=== PATIENT | male | born 1975 | race Caucasian/White ===

== ENCOUNTER 2020-09-30 14:18 | Inpatient (IN) | payer OTHER ==
[2020-09-30] MEDS ORDERED: MENTHOL/PHENOL 1 EACH UD MM PRN (18:21)
[2020-09-30] MEDS ORDERED: chlordiazePOXIDE HCL 25 MG CAPSULE PO PRN (18:21)
[2020-09-30] MEDS ORDERED: NICOTINE POLACRILEX 2 MG GUM BUC PRN (18:21)
[2020-09-30] MEDS ORDERED: MAGNESIUM HYDROX 2400MG/30ML ORAL SUSPENSION 30 ML CUP PO PRN (18:21)
[2020-09-30] MEDS ORDERED: IBUPROFEN 400 MG TABLET (FP) PO PRN (18:21)
[2020-09-30] MEDS ORDERED: MAG HYDROX/AL HYDROX/SIMETH 30 ML UNIT-DOSE CUP PO PRN (18:21)
[2020-09-30] MEDS ORDERED: MAGNESIUM CITRATE 300 ML BOTTLE PO PRN (18:21)
[2020-09-30] MEDS ORDERED: BISMUTH SUBSALICYLATE 524 MG/30 ML UD PO PRN (18:21)
[2020-09-30] MEDS ORDERED: METHOCARBAMOL 500 MG TABLET PO PRN (18:21)
[2020-09-30] MEDS ORDERED: ACETAMINOPHEN 325 MG TABLET (FP) PO PRN ×2 (18:21)
[2020-09-30] MEDS ORDERED: ONDANSETRON *ODT* 4 MG TABLET SL PRN (18:21)
[2020-09-30 18:51] VITALS: BMI 30.8
[2020-09-30] MEDS: MELATONIN 5 MG TABLETS PO SCH (22:24)
[2020-09-30] MEDS: hydrOXYzine PAMOATE 25 MG CAPSULE (FP) PO SCH (22:24)
[2020-09-30] MEDS: chlordiazePOXIDE HCL 25 MG CAPSULE PO SCH (22:24)
[2020-09-30] MEDS: THIAMINE HCL 100 MG TABLET (FP) PO SCH (22:24)
[2020-10-01] MEDS: chlordiazePOXIDE HCL 25 MG CAPSULE PO SCH ×4 (06:31→22:29)
[2020-10-01] MEDS: hydrOXYzine PAMOATE 25 MG CAPSULE (FP) PO SCH ×5 (06:32→22:30)
[2020-10-01] MEDS ORDERED: ALBUTEROL SO4 HFA INHALER IH ONE (06:34)
[2020-10-01] MEDS ORDERED: ALBUTEROL SO4 HFA INHALER IH PRN (06:52)
[2020-10-01] MEDS: amLODIPine BESYLATE 10 MG TABLET (FP) PO SCH (10:07)
[2020-10-01] MEDS: ASPIRIN 81 MG CHEWABLE TABLETS PO SCH (10:07)
[2020-10-01] MEDS: PRENATAL VITAMINS W/ FOLIC ACID TABLET (FP) PO SCH (10:07)
[2020-10-01] MEDS: FAMOTIDINE 20 MG TABLET PO SCH (10:07)
[2020-10-01] MEDS: BUDESONIDE/FORMETEROL FUMARATE 160/4.5 mcg INHALER IH SCH ×2 (10:08→22:30)
[2020-10-01 10:17] LABS: HEMATOCRIT 37.6 % (35.4-49); HEMOGLOBIN 13.2 GM/dL (11.7-16.9); MCH 30.1 pg (25.7-33.7); MCHC 35.2 g/dl (32.0-35.9); MEAN CELL VOLUME 85.5 fl (80-96); MEAN PLT VOLUME 8.3 fl (7.5-11.1); PLATELET COUNT 264 K/MM3 (134-434); WHITE BLOOD COUNT 7.8 K/mm3 (4.0-10.0)
[2020-10-01 10:22] LABS: ALBUMIN 3.5 g/dl (3.4-5.0)
[2020-10-01 10:25] LABS: CREATININE 1.4 mg/dL (0.55-1.3)
[2020-10-01 10:26] LABS: BILIRUBIN,TOTAL 0.4 mg/dL (0.2-1); TOT PROT 6.7 g/dl (6.4-8.2)
[2020-10-01 10:51] LABS: CALCIUM 8.5 mg/dL (8.5-10.1)
[2020-10-01] MEDS: ALBUTEROL SO4 HFA INHALER IH PRN (18:24)
[2020-10-01] MEDS: ATORVASTATIN CA 10 MG TABLET (FP) PO SCH (22:29)
[2020-10-01] MEDS: THIAMINE HCL 100 MG TABLET (FP) PO SCH (22:30)
[2020-10-01] MEDS: MELATONIN 5 MG TABLETS PO SCH (22:30)
[2020-10-01] MEDS: MONTELUKAST NA 10 MG TABLET PO SCH (22:31)
[2020-10-02] MEDS: hydrOXYzine PAMOATE 25 MG CAPSULE (FP) PO SCH ×5 (06:04→22:02)
[2020-10-02] MEDS: chlordiazePOXIDE HCL 25 MG CAPSULE PO SCH ×4 (06:05→22:02)
[2020-10-02] MEDS: PRENATAL VITAMINS W/ FOLIC ACID TABLET (FP) PO SCH (10:06)
[2020-10-02] MEDS: FAMOTIDINE 20 MG TABLET PO SCH (10:06)
[2020-10-02] MEDS: amLODIPine BESYLATE 10 MG TABLET (FP) PO SCH (10:07)
[2020-10-02] MEDS: ASPIRIN 81 MG CHEWABLE TABLETS PO SCH (10:07)
[2020-10-02] MEDS: BUDESONIDE/FORMETEROL FUMARATE 160/4.5 mcg INHALER IH SCH ×2 (10:09→22:04)
[2020-10-02] MEDS: ALBUTEROL SO4 HFA INHALER IH PRN ×2 (10:10→22:04)
[2020-10-02] MEDS: METHADONE HCL 10 MG TABLET PO SCH (11:11)
[2020-10-02 13:09] LABS: BLOOD UREA NITROGEN 32.9 mg/dL (7-18)
[2020-10-02 13:12] LABS: CREATININE 1.4 mg/dL (0.55-1.3)
[2020-10-02] MEDS: MONTELUKAST NA 10 MG TABLET PO SCH (22:02)
[2020-10-02] MEDS: THIAMINE HCL 100 MG TABLET (FP) PO SCH (22:02)
[2020-10-02] MEDS: MELATONIN 5 MG TABLETS PO SCH (22:02)
[2020-10-02] MEDS: ATORVASTATIN CA 10 MG TABLET (FP) PO SCH (22:02)
[2020-10-03] MEDS ORDERED: chlordiazePOXIDE HCL 10 MG CAPSULE PO PRN
[2020-10-03] MEDS: chlordiazePOXIDE HCL 10 MG CAPSULE PO SCH ×4 (05:25→22:05)
[2020-10-03] MEDS: METHADONE HCL 10 MG TABLET PO SCH (05:25)
[2020-10-03] MEDS: hydrOXYzine PAMOATE 25 MG CAPSULE (FP) PO SCH ×2 (05:26→11:07)
[2020-10-03] MEDS ORDERED: hydrOXYzine PAMOATE 25 MG CAPSULE (FP) PO PRN (10:35)
[2020-10-03] MEDS: ASPIRIN 81 MG CHEWABLE TABLETS PO SCH (11:07)
[2020-10-03] MEDS: FAMOTIDINE 20 MG TABLET PO SCH (11:07)
[2020-10-03] MEDS: amLODIPine BESYLATE 10 MG TABLET (FP) PO SCH (11:07)
[2020-10-03] MEDS: BUDESONIDE/FORMETEROL FUMARATE 160/4.5 mcg INHALER IH SCH ×2 (11:07→22:03)
[2020-10-03] MEDS: PRENATAL VITAMINS W/ FOLIC ACID TABLET (FP) PO SCH (11:08)
[2020-10-03 12:04] LABS: PH,URINE 6.5 (5.0-8.0); URINE APPEARANCE CLEAR; URINE BILIRUBIN NEGATIVE (NEGATIVE); URINE COLOR YELLOW; URINE GLUCOSE (UA) NEGATIVE (NEGATIVE); URINE KETONE NEGATIVE (NEGATIVE); URINE LEUK ESTERASE NEGATIVE (NEGATIVE); URINE NITRITE NEGATIVE (NEGATIVE); URINE PROTEIN NEGATIVE (NEGATIVE); URINE UROBILINOGEN 0.2 mg/dL (0.2-1.0)
[2020-10-03] MEDS: GABAPENTIN 100 MG CAPSULE PO SCH ×2 (15:07→22:02)
[2020-10-03] MEDS: MELATONIN 5 MG TABLETS PO SCH (22:02)
[2020-10-03] MEDS: ATORVASTATIN CA 10 MG TABLET (FP) PO SCH (22:02)
[2020-10-03] MEDS: MONTELUKAST NA 10 MG TABLET PO SCH (22:02)
[2020-10-03] MEDS: AMITRIPTYLINE HCL 25 MG TABLET PO SCH (22:02)
[2020-10-03] MEDS: THIAMINE HCL 100 MG TABLET (FP) PO SCH (22:02)
[2020-10-04] MEDS: chlordiazePOXIDE HCL 10 MG CAPSULE PO SCH ×2 (05:51→16:56)
[2020-10-04] MEDS: METHADONE HCL 10 MG TABLET PO SCH (05:52)
[2020-10-04] MEDS: GABAPENTIN 100 MG CAPSULE PO SCH ×3 (07:22→22:02)
[2020-10-04] MEDS: PRENATAL VITAMINS W/ FOLIC ACID TABLET (FP) PO SCH (10:12)
[2020-10-04] MEDS: ASPIRIN 81 MG CHEWABLE TABLETS PO SCH (10:13)
[2020-10-04] MEDS: SERTRALINE HCL 50 MG TABLET (FP) PO SCH (10:13)
[2020-10-04] MEDS: FAMOTIDINE 20 MG TABLET PO SCH (10:13)
[2020-10-04] MEDS: amLODIPine BESYLATE 10 MG TABLET (FP) PO SCH (10:13)
[2020-10-04] MEDS: BUDESONIDE/FORMETEROL FUMARATE 160/4.5 mcg INHALER IH SCH ×2 (10:14→22:01)
[2020-10-04] MEDS: TOPIRAMATE 25 MG TABLET PO SCH (10:15)
[2020-10-04] MEDS: ALBUTEROL SO4 HFA INHALER IH PRN (17:06)
[2020-10-04] MEDS: AMITRIPTYLINE HCL 25 MG TABLET PO SCH (22:02)
[2020-10-04] MEDS: MONTELUKAST NA 10 MG TABLET PO SCH (22:02)
[2020-10-04] MEDS: MELATONIN 5 MG TABLETS PO SCH (22:02)
[2020-10-04] MEDS: ATORVASTATIN CA 10 MG TABLET (FP) PO SCH (22:02)
[2020-10-04] MEDS: THIAMINE HCL 100 MG TABLET (FP) PO SCH (22:03)
[2020-10-05] MEDS ORDERED: chlordiazePOXIDE HCL 10 MG CAPSULE PO ONE (05:00)
[2020-10-05] MEDS: GABAPENTIN 100 MG CAPSULE PO SCH (05:37)
[2020-10-05] MEDS: METHADONE HCL 10 MG TABLET PO SCH (05:38)
[2020-10-05 09:57] VITALS: BP 135/85; PULSE 73; TEMP 97.1
[2020-10-05] MEDS: FAMOTIDINE 20 MG TABLET PO SCH (10:13)
[2020-10-05] MEDS: amLODIPine BESYLATE 10 MG TABLET (FP) PO SCH (10:13)
[2020-10-05] MEDS: ASPIRIN 81 MG CHEWABLE TABLETS PO SCH (10:13)
[2020-10-05] MEDS: PRENATAL VITAMINS W/ FOLIC ACID TABLET (FP) PO SCH (10:13)
[2020-10-05] MEDS: TOPIRAMATE 25 MG TABLET PO SCH (10:14)
[2020-10-05] MEDS: SERTRALINE HCL 50 MG TABLET (FP) PO SCH (10:15)
[2020-10-05] MEDS: BUDESONIDE/FORMETEROL FUMARATE 160/4.5 mcg INHALER IH SCH (10:16)
[2020-10-06] MEDS ORDERED: NICOTINE 21 MG/24 HOURS TOPICAL PATCH TD SCH (10:00)
== END 2020-10-05 11:56 | disposition other institution (70) | DRG 773 ==
LOC: YASAS 14:18 → Y3N 20:11
PROVIDERS: ADMIT Allergy & Immunology; ATTEND Allergy & Immunology
PROC: HZ2ZZZZ Detoxification Services for Substance Abuse Treatment (ICD-10-PCS; principal; 2020-09-30)
DX: F10.230 Alcohol dependence with withdrawal, uncomplicated (principal); F11.20 Opioid dependence, uncomplicated; F14.20 Cocaine dependence, uncomplicated; F13.20 Sedative, hypnotic or anxiolytic dependence, uncomplicated; F17.210 Nicotine dependence, cigarettes, uncomplicated; F32.9 Major depressive disorder, single episode, unspecified; I10 Essential (primary) hypertension; J45.20 Mild intermittent asthma, uncomplicated; J44.9 Chronic obstructive pulmonary disease, unspecified; E11.9 Type 2 diabetes mellitus without complications; Z79.4 Long term (current) use of insulin; Z62.810 Personal history of physical and sexual abuse in childhood; Z98.890 Other specified postprocedural states; Z91.5 Personal history of self-harm; Z88.8 Allergy status to other drugs, medicaments and biological substances; Z91.013 Allergy to seafood; Z56.0 Unemployment, unspecified; Z59.0 Homelessness
CPT/HCPCS: 36415; 80053; 81003; 82565; 82962; 84520; 85027; 86780; 93005; 93010; C9803; Q0162; U0003

== ENCOUNTER 2020-10-05 09:11 | Inpatient (IN) | payer OTHER ==
[2020-10-05] MEDS ORDERED: MENTHOL/PHENOL 1 EACH UD MM PRN (15:41)
[2020-10-05] MEDS ORDERED: ACETAMINOPHEN 325 MG TABLET (FP) PO PRN (15:41)
[2020-10-05] MEDS ORDERED: MAGNESIUM CITRATE 300 ML BOTTLE PO PRN (15:41)
[2020-10-05] MEDS ORDERED: guaiFENesin 200 MG/10 ML 10 ML UNIT-DOSE CUPS PO PRN (15:41)
[2020-10-05] MEDS ORDERED: P-EPHED 60MG/TRIPROLIDI 2.5MG TABLET PO PRN (15:41)
[2020-10-05] MEDS ORDERED: NICOTINE POLACRILEX 2 MG GUM BUC PRN (15:41)
[2020-10-05] MEDS ORDERED: MAG HYDROX/AL HYDROX/SIMETH 30 ML UNIT-DOSE CUP PO PRN (15:41)
[2020-10-05] MEDS ORDERED: IBUPROFEN 400 MG TABLET (FP) PO PRN (15:41)
[2020-10-05] MEDS ORDERED: LOPERAMIDE HCL 2 MG CAPSULE PO PRN (15:41)
[2020-10-05] MEDS ORDERED: PT OWN MED DRAWER 7, Y5N ONE (16:28)
[2020-10-05] MEDS: METHOCARBAMOL 500 MG TABLET PO SCH ×2 (18:30→21:16)
[2020-10-05] MEDS: MELATONIN 5 MG TABLETS PO SCH (21:14)
[2020-10-05] MEDS: THIAMINE HCL 100 MG TABLET (FP) PO SCH (21:14)
[2020-10-05] MEDS: MONTELUKAST NA 10 MG TABLET PO SCH (21:16)
[2020-10-05] MEDS: GABAPENTIN 100 MG CAPSULE PO SCH (21:16)
[2020-10-05] MEDS: ATORVASTATIN CA 10 MG TABLET (FP) PO SCH (21:17)
[2020-10-05] MEDS: BUDESONIDE/FORMETEROL FUMARATE 160/4.5 mcg INHALER IH SCH (21:17)
[2020-10-05] MEDS: AMITRIPTYLINE HCL 25 MG TABLET PO SCH (22:02)
[2020-10-06] MEDS: GABAPENTIN 100 MG CAPSULE PO SCH ×3 (06:42→21:17)
[2020-10-06] MEDS: METHADONE HCL 10 MG TABLET PO SCH (06:42)
[2020-10-06] MEDS ORDERED: PT OWN MED DRAWER 7, Y5N ONE ×4 (08:43→22:04)
[2020-10-06] MEDS: BUDESONIDE/FORMETEROL FUMARATE 160/4.5 mcg INHALER IH SCH ×2 (10:08→21:19)
[2020-10-06] MEDS: SERTRALINE HCL 50 MG TABLET (FP) PO SCH (10:09)
[2020-10-06] MEDS: METHOCARBAMOL 500 MG TABLET PO SCH ×4 (10:09→21:17)
[2020-10-06] MEDS: amLODIPine BESYLATE 10 MG TABLET (FP) PO SCH (10:09)
[2020-10-06] MEDS: TOPIRAMATE 25 MG TABLET PO SCH (10:10)
[2020-10-06] MEDS: FAMOTIDINE 20 MG TABLET PO SCH (10:10)
[2020-10-06] MEDS: PRENATAL VITAMINS W/ FOLIC ACID TABLET (FP) PO SCH (10:10)
[2020-10-06] MEDS: ASPIRIN COATED 81 MG TABLET.EC PO SCH (10:12)
[2020-10-06] MEDS: NICOTINE 21 MG/24 HOURS TOPICAL PATCH TD SCH (10:12)
[2020-10-06] MEDS: MONTELUKAST NA 10 MG TABLET PO SCH (21:17)
[2020-10-06] MEDS: AMITRIPTYLINE HCL 25 MG TABLET PO SCH (21:17)
[2020-10-06] MEDS: MELATONIN 5 MG TABLETS PO SCH (21:17)
[2020-10-06] MEDS: THIAMINE HCL 100 MG TABLET (FP) PO SCH (21:17)
[2020-10-06] MEDS: ATORVASTATIN CA 10 MG TABLET (FP) PO SCH (21:17)
[2020-10-07] MEDS ORDERED: PT OWN MED DRAWER 7, Y5N ONE (03:43)
[2020-10-07] MEDS: GABAPENTIN 100 MG CAPSULE PO SCH ×3 (06:15→21:30)
[2020-10-07] MEDS: METHADONE HCL 10 MG TABLET PO SCH (06:15)
[2020-10-07] MEDS: SERTRALINE HCL 50 MG TABLET (FP) PO SCH (09:58)
[2020-10-07] MEDS: ASPIRIN COATED 81 MG TABLET.EC PO SCH (09:58)
[2020-10-07] MEDS: BUDESONIDE/FORMETEROL FUMARATE 160/4.5 mcg INHALER IH SCH ×2 (09:58→21:30)
[2020-10-07] MEDS: amLODIPine BESYLATE 10 MG TABLET (FP) PO SCH (09:58)
[2020-10-07] MEDS: PRENATAL VITAMINS W/ FOLIC ACID TABLET (FP) PO SCH (09:59)
[2020-10-07] MEDS: FAMOTIDINE 20 MG TABLET PO SCH (09:59)
[2020-10-07] MEDS: METHOCARBAMOL 500 MG TABLET PO SCH ×4 (09:59→21:31)
[2020-10-07] MEDS: NICOTINE 21 MG/24 HOURS TOPICAL PATCH TD SCH (09:59)
[2020-10-07] MEDS: TOPIRAMATE 25 MG TABLET PO SCH (10:00)
[2020-10-07] MEDS: THIAMINE HCL 100 MG TABLET (FP) PO SCH (21:30)
[2020-10-07] MEDS: MONTELUKAST NA 10 MG TABLET PO SCH (21:31)
[2020-10-07] MEDS: ATORVASTATIN CA 10 MG TABLET (FP) PO SCH (21:31)
[2020-10-07] MEDS: MELATONIN 5 MG TABLETS PO SCH (21:32)
[2020-10-07] MEDS: AMITRIPTYLINE HCL 25 MG TABLET PO SCH (23:01)
[2020-10-08] MEDS: GABAPENTIN 100 MG CAPSULE PO SCH ×3 (06:08→21:20)
[2020-10-08] MEDS: METHADONE HCL 10 MG TABLET PO SCH (06:09)
[2020-10-08] MEDS: FAMOTIDINE 20 MG TABLET PO SCH (09:41)
[2020-10-08] MEDS: METHOCARBAMOL 500 MG TABLET PO SCH ×4 (09:41→21:21)
[2020-10-08] MEDS: NICOTINE 21 MG/24 HOURS TOPICAL PATCH TD SCH (09:41)
[2020-10-08] MEDS: PRENATAL VITAMINS W/ FOLIC ACID TABLET (FP) PO SCH (09:41)
[2020-10-08] MEDS: amLODIPine BESYLATE 10 MG TABLET (FP) PO SCH (09:41)
[2020-10-08] MEDS: BUDESONIDE/FORMETEROL FUMARATE 160/4.5 mcg INHALER IH SCH ×2 (09:41→21:20)
[2020-10-08] MEDS: ASPIRIN COATED 81 MG TABLET.EC PO SCH (09:41)
[2020-10-08] MEDS: SERTRALINE HCL 50 MG TABLET (FP) PO SCH (09:42)
[2020-10-08] MEDS: TOPIRAMATE 25 MG TABLET PO SCH (09:42)
[2020-10-08] MEDS: MAGNESIUM HYDROX 2400MG/30ML ORAL SUSPENSION 30 ML CUP PO PRN (10:04)
[2020-10-08] MEDS: hydrOXYzine PAMOATE 25 MG CAPSULE (FP) PO PRN (15:16)
[2020-10-08] MEDS: MONTELUKAST NA 10 MG TABLET PO SCH (21:20)
[2020-10-08] MEDS: MELATONIN 5 MG TABLETS PO SCH (21:20)
[2020-10-08] MEDS: ATORVASTATIN CA 10 MG TABLET (FP) PO SCH (21:20)
[2020-10-08] MEDS: THIAMINE HCL 100 MG TABLET (FP) PO SCH (21:20)
[2020-10-08] MEDS: AMITRIPTYLINE HCL 25 MG TABLET PO SCH (21:49)
[2020-10-09] MEDS ORDERED: PT OWN MED DRAWER 7, Y5N ONE ×3 (04:10→13:54)
[2020-10-09] MEDS: METHADONE HCL 10 MG TABLET PO SCH (06:18)
[2020-10-09] MEDS: GABAPENTIN 100 MG CAPSULE PO SCH ×3 (06:18→21:15)
[2020-10-09] MEDS: NICOTINE 21 MG/24 HOURS TOPICAL PATCH TD SCH (09:58)
[2020-10-09] MEDS: BUDESONIDE/FORMETEROL FUMARATE 160/4.5 mcg INHALER IH SCH ×2 (09:58→21:17)
[2020-10-09] MEDS: SERTRALINE HCL 50 MG TABLET (FP) PO SCH (09:59)
[2020-10-09] MEDS: ASPIRIN COATED 81 MG TABLET.EC PO SCH (09:59)
[2020-10-09] MEDS: ALBUTEROL SO4 HFA INHALER IH PRN (09:59)
[2020-10-09] MEDS: amLODIPine BESYLATE 10 MG TABLET (FP) PO SCH (10:00)
[2020-10-09] MEDS: PRENATAL VITAMINS W/ FOLIC ACID TABLET (FP) PO SCH (10:00)
[2020-10-09] MEDS: METHOCARBAMOL 500 MG TABLET PO SCH ×4 (10:00→21:15)
[2020-10-09] MEDS: TOPIRAMATE 25 MG TABLET PO SCH (10:01)
[2020-10-09] MEDS: FAMOTIDINE 20 MG TABLET PO SCH (10:01)
[2020-10-09] MEDS: ATORVASTATIN CA 10 MG TABLET (FP) PO SCH (21:15)
[2020-10-09] MEDS: MONTELUKAST NA 10 MG TABLET PO SCH (21:15)
[2020-10-09] MEDS: THIAMINE HCL 100 MG TABLET (FP) PO SCH (21:15)
[2020-10-09] MEDS: MELATONIN 5 MG TABLETS PO SCH (21:15)
[2020-10-09] MEDS: AMITRIPTYLINE HCL 25 MG TABLET PO SCH (21:16)
[2020-10-10] MEDS: ALBUTEROL SO4 HFA INHALER IH PRN (03:52)
[2020-10-10] MEDS ORDERED: PT OWN MED DRAWER 7, Y5N ONE ×2 (04:02→08:51)
[2020-10-10] MEDS: GABAPENTIN 100 MG CAPSULE PO SCH ×3 (06:27→21:20)
[2020-10-10] MEDS: METHADONE HCL 10 MG TABLET PO SCH (06:27)
[2020-10-10] MEDS: NICOTINE 21 MG/24 HOURS TOPICAL PATCH TD SCH (09:45)
[2020-10-10] MEDS: ASPIRIN COATED 81 MG TABLET.EC PO SCH (09:45)
[2020-10-10] MEDS: PRENATAL VITAMINS W/ FOLIC ACID TABLET (FP) PO SCH (09:45)
[2020-10-10] MEDS: BUDESONIDE/FORMETEROL FUMARATE 160/4.5 mcg INHALER IH SCH ×2 (09:45→21:38)
[2020-10-10] MEDS: TOPIRAMATE 25 MG TABLET PO SCH (09:45)
[2020-10-10] MEDS: amLODIPine BESYLATE 10 MG TABLET (FP) PO SCH (09:46)
[2020-10-10] MEDS: FAMOTIDINE 20 MG TABLET PO SCH (09:46)
[2020-10-10] MEDS: SERTRALINE HCL 50 MG TABLET (FP) PO SCH (09:46)
[2020-10-10] MEDS: METHOCARBAMOL 500 MG TABLET PO SCH ×4 (09:46→21:20)
[2020-10-10] MEDS ORDERED: INSULIN SLIDING SCALE (NOVOLOG) 1 VIAL SQ SCH (11:00)
[2020-10-10] MEDS: INSULIN SLIDING SCALE (NOVOLOG) 1 VIAL SQ SCH ×3 (11:40→21:37)
[2020-10-10] MEDS: MAGNESIUM HYDROX 2400MG/30ML ORAL SUSPENSION 30 ML CUP PO PRN (16:41)
[2020-10-10] MEDS: ATORVASTATIN CA 10 MG TABLET (FP) PO SCH (21:20)
[2020-10-10] MEDS: MONTELUKAST NA 10 MG TABLET PO SCH (21:20)
[2020-10-10] MEDS: THIAMINE HCL 100 MG TABLET (FP) PO SCH (21:20)
[2020-10-10] MEDS: MELATONIN 5 MG TABLETS PO SCH (21:20)
[2020-10-10] MEDS: hydrOXYzine PAMOATE 25 MG CAPSULE (FP) PO PRN (21:20)
[2020-10-10] MEDS: AMITRIPTYLINE HCL 25 MG TABLET PO SCH (21:22)
[2020-10-11] MEDS: INSULIN SLIDING SCALE (NOVOLOG) 1 VIAL SQ SCH ×4 (06:12→21:24)
[2020-10-11] MEDS: METHADONE HCL 10 MG TABLET PO SCH (06:13)
[2020-10-11] MEDS: ALBUTEROL SO4 HFA INHALER IH PRN (06:13)
[2020-10-11] MEDS: GABAPENTIN 100 MG CAPSULE PO SCH ×3 (06:14→21:20)
[2020-10-11] MEDS: NICOTINE 21 MG/24 HOURS TOPICAL PATCH TD SCH (10:03)
[2020-10-11] MEDS: BUDESONIDE/FORMETEROL FUMARATE 160/4.5 mcg INHALER IH SCH ×2 (10:03→21:20)
[2020-10-11] MEDS: FAMOTIDINE 20 MG TABLET PO SCH (10:04)
[2020-10-11] MEDS: amLODIPine BESYLATE 10 MG TABLET (FP) PO SCH (10:04)
[2020-10-11] MEDS: MAGNESIUM HYDROX 2400MG/30ML ORAL SUSPENSION 30 ML CUP PO PRN (10:04)
[2020-10-11] MEDS: ASPIRIN COATED 81 MG TABLET.EC PO SCH (10:04)
[2020-10-11] MEDS: METHOCARBAMOL 500 MG TABLET PO SCH ×4 (10:04→21:23)
[2020-10-11] MEDS: PRENATAL VITAMINS W/ FOLIC ACID TABLET (FP) PO SCH (10:04)
[2020-10-11] MEDS: SERTRALINE HCL 50 MG TABLET (FP) PO SCH (10:05)
[2020-10-11] MEDS: TOPIRAMATE 25 MG TABLET PO SCH (10:05)
[2020-10-11] MEDS ORDERED: PT OWN MED DRAWER 7, Y5N ONE ×2 (10:43→14:43)
[2020-10-11] MEDS: MELATONIN 5 MG TABLETS PO SCH (21:20)
[2020-10-11] MEDS: THIAMINE HCL 100 MG TABLET (FP) PO SCH (21:20)
[2020-10-11] MEDS: MONTELUKAST NA 10 MG TABLET PO SCH (21:21)
[2020-10-11] MEDS: ATORVASTATIN CA 10 MG TABLET (FP) PO SCH (21:21)
[2020-10-11] MEDS ORDERED: INSULIN (NOVOLOG) ASPART 100 UNITS/ML 10ML VIAL ONE (21:23)
[2020-10-11] MEDS: AMITRIPTYLINE HCL 25 MG TABLET PO SCH (21:25)
[2020-10-12] MEDS ORDERED: PT OWN MED DRAWER 7, Y5N ONE ×2 (03:11→08:40)
[2020-10-12] MEDS ORDERED: METHADONE HCL 10 MG TABLET PO SCH (06:00)
[2020-10-12] MEDS: GABAPENTIN 100 MG CAPSULE PO SCH (06:34)
[2020-10-12] MEDS: INSULIN SLIDING SCALE (NOVOLOG) 1 VIAL SQ SCH (06:34)
[2020-10-12 06:57] VITALS: TEMP 97.1
[2020-10-12 09:11] VITALS: BP 150/60; PULSE 77
[2020-10-12] MEDS: PRENATAL VITAMINS W/ FOLIC ACID TABLET (FP) PO SCH (09:46)
[2020-10-12] MEDS: METHOCARBAMOL 500 MG TABLET PO SCH (09:46)
[2020-10-12] MEDS: BUDESONIDE/FORMETEROL FUMARATE 160/4.5 mcg INHALER IH SCH (09:47)
[2020-10-12] MEDS: NICOTINE 21 MG/24 HOURS TOPICAL PATCH TD SCH (09:47)
[2020-10-12] MEDS: amLODIPine BESYLATE 10 MG TABLET (FP) PO SCH (09:47)
[2020-10-12] MEDS: FAMOTIDINE 20 MG TABLET PO SCH (09:47)
[2020-10-12] MEDS: SERTRALINE HCL 50 MG TABLET (FP) PO SCH (09:47)
[2020-10-12] MEDS: ASPIRIN COATED 81 MG TABLET.EC PO SCH (09:47)
[2020-10-12] MEDS: TOPIRAMATE 25 MG TABLET PO SCH (09:50)
[2020-10-13] MEDS ORDERED: METHADONE HCL 10 MG TABLET PO SCH (06:00)
== END 2020-10-12 10:25 | disposition home or self-care (01) | DRG 772 ==
LOC: YASAS 09:11 → Y3E 10:58
PROVIDERS: ADMIT Allergy & Immunology; ATTEND Allergy & Immunology
PROC: HZ42ZZZ Group Counseling for Substance Abuse Treatment, Cognitive-Behavioral (ICD-10-PCS; principal; 2020-10-05)
DX: F10.20 Alcohol dependence, uncomplicated (principal); F11.20 Opioid dependence, uncomplicated; F14.20 Cocaine dependence, uncomplicated; F17.210 Nicotine dependence, cigarettes, uncomplicated; I10 Essential (primary) hypertension; E10.9 Type 1 diabetes mellitus without complications; Z59.0 Homelessness; Z88.8 Allergy status to other drugs, medicaments and biological substances; Z91.013 Allergy to seafood
CPT/HCPCS: 82962; C9803; U0003

== ENCOUNTER 2021-06-07 17:22 | Inpatient (IN) | payer OTHER ==
[2021-06-07 17:51] VITALS: BMI 31.6
[2021-06-07] MEDS ORDERED: MAGNESIUM HYDROX 2400MG/30ML ORAL SUSPENSION 30 ML CUP PO PRN (18:32)
[2021-06-07] MEDS ORDERED: METHOCARBAMOL 500 MG TABLET PO PRN (18:32)
[2021-06-07] MEDS ORDERED: IBUPROFEN 400 MG TABLET (FP) PO PRN (18:32)
[2021-06-07] MEDS ORDERED: BISMUTH SUBSALICYLATE 524 MG/30 ML PO PRN (18:32)
[2021-06-07] MEDS ORDERED: NALOXONE (NARCAN) HCL 4 MG/0.1 ML SPRAY NS PRN (18:32)
[2021-06-07] MEDS ORDERED: ONDANSETRON *ODT* 4 MG TABLET SL PRN (18:32)
[2021-06-07] MEDS ORDERED: ACETAMINOPHEN 325 MG TABLET (FP) PO PRN ×2 (18:32)
[2021-06-07] MEDS ORDERED: MAG HYDROX/AL HYDROX/SIMETH 30 ML UNIT-DOSE CUP PO PRN (18:32)
[2021-06-07] MEDS ORDERED: MENTHOL/PHENOL 1 EACH UD MM PRN (18:32)
[2021-06-07] MEDS ORDERED: NICOTINE 10 MG CARTRIDGE (INHALER) IH PRN (18:32)
[2021-06-07] MEDS ORDERED: MAGNESIUM CITRATE 300 ML BOTTLE PO PRN (18:32)
[2021-06-07] MEDS ORDERED: ALBUTEROL SO4 HFA INHALER IH PRN (18:44)
[2021-06-07] MEDS ORDERED: MONTELUKAST NA 10 MG TABLET PO SCH (22:00)
[2021-06-07] MEDS ORDERED: THIAMINE HCL 100 MG TABLET (FP) PO SCH (22:00)
[2021-06-07] MEDS ORDERED: ATORVASTATIN CA 10 MG TABLET (FP) PO SCH (22:00)
[2021-06-07] MEDS ORDERED: MELATONIN 5 MG TABLETS PO SCH (22:00)
[2021-06-07] MEDS: BUDESONIDE/FORMETEROL FUMARATE 160/4.5 mcg INHALER IH SCH (22:21)
[2021-06-08] MEDS ORDERED: NICOTINE 14 MG/24 HOURS TOPICAL PATCH TD SCH (10:00)
[2021-06-08] MEDS ORDERED: LISINOPRIL 20 MG TABLET PO SCH (10:00)
[2021-06-08] MEDS ORDERED: amLODIPine BESYLATE 10 MG TABLET (FP) PO SCH (10:00)
[2021-06-08] MEDS ORDERED: ASPIRIN 81 MG CHEWABLE TABLETS PO SCH (10:00)
[2021-06-08] MEDS ORDERED: COLCHICINE 0.6 MG CAPSULE PO SCH (10:00)
[2021-06-08] MEDS ORDERED: PANTOPRAZOLE 40 MG TABLET PO SCH (10:00)
[2021-06-08] MEDS ORDERED: PRENATAL VITAMINS W/ FOLIC ACID TABLET (FP) PO SCH (10:00)
[2021-06-08] MEDS ORDERED: SERTRALINE HCL 50 MG TABLET (FP) PO SCH (10:15)
[2021-06-08] MEDS: BUDESONIDE/FORMETEROL FUMARATE 160/4.5 mcg INHALER IH SCH (10:16)
[2021-06-08 11:55] LABS: ALBUMIN 3.5 g/dl (3.4-5.0); BLOOD UREA NITROGEN 24.9 mg/dL (7-18); CALCIUM 8.5 mg/dL (8.5-10.1)
[2021-06-08 11:56] LABS: HEMATOCRIT 39.7 % (35.4-49); HEMOGLOBIN 14.1 GM/dL (11.7-16.9); MCH 31.6 pg (25.7-33.7); MCHC 35.5 g/dl (32.0-35.9); MEAN CELL VOLUME 89.1 fl (80-96); MEAN PLT VOLUME 8.6 fl (7.5-11.1); PLATELET COUNT 286 10^3/uL (134-434); RBC 4.46 M/mm3 (4.00-5.60); RDW 15.1 % (11.9-15.9); WHITE BLOOD COUNT 9.7 K/mm3 (4.0-10.0)
[2021-06-08 11:57] LABS: CREATININE 1.4 mg/dL (0.55-1.3)
[2021-06-08 11:58] LABS: BILIRUBIN,TOTAL 0.6 mg/dL (0.2-1)
[2021-06-08 12:07] LABS: TOT PROT 6.7 g/dl (6.4-8.2)
[2021-06-08] MEDS ORDERED: methaDONE HCL 10 MG TABLET PO SCH (12:30)
[2021-06-08 12:40] LABS: HIV INTERPRETATION NEGATIVE (NEGATIVE)
[2021-06-08] MEDS ORDERED: FLU VACC QS2021-22(6MOS UP)/PF 60 MCG/0.5 ML SYRINGE IM ONE (13:00)
[2021-06-08 13:46] VITALS: BP 152/78; PULSE 78; TEMP 98.2
== END 2021-06-08 13:52 | disposition other institution (70) | DRG 773 ==
LOC: YASAS 17:22 → Y6N 18:22 → UNDOADMIN 18:22 → Y6N 19:07
PROVIDERS: ADMIT Allergy & Immunology; ATTEND Allergy & Immunology
PROC: HZ2ZZZZ Detoxification Services for Substance Abuse Treatment (ICD-10-PCS; principal; 2021-06-07)
DX: F11.23 Opioid dependence with withdrawal (principal); F10.230 Alcohol dependence with withdrawal, uncomplicated; F14.20 Cocaine dependence, uncomplicated; F13.20 Sedative, hypnotic or anxiolytic dependence, uncomplicated; F17.210 Nicotine dependence, cigarettes, uncomplicated; F41.9 Anxiety disorder, unspecified; F32.A Depression, unspecified; E11.9 Type 2 diabetes mellitus without complications; Z79.84 Long term (current) use of oral hypoglycemic drugs; K21.9 Gastro-esophageal reflux disease without esophagitis; J44.9 Chronic obstructive pulmonary disease, unspecified; J45.40 Moderate persistent asthma, uncomplicated; Z62.810 Personal history of physical and sexual abuse in childhood; Z86.74 Personal history of sudden cardiac arrest; Z56.0 Unemployment, unspecified; Z59.00 Homelessness unspecified; Z88.8 Allergy status to other drugs, medicaments and biological substances; Z91.013 Allergy to seafood
CPT/HCPCS: 36415; 80053; 83036; 85027; 86780; 87389; 90686; C9803; G0008; Q0162; U0003; U0005

== ENCOUNTER 2021-06-08 13:58 | Inpatient (IN) | payer OTHER ==
[2021-06-08] MEDS ORDERED: MAGNESIUM CITRATE 300 ML BOTTLE PO PRN (14:42)
[2021-06-08] MEDS ORDERED: P-EPHED 60MG/TRIPROLIDI 2.5MG TABLET PO PRN (14:42)
[2021-06-08] MEDS ORDERED: ACETAMINOPHEN 325 MG TABLET (FP) PO PRN (14:42)
[2021-06-08] MEDS ORDERED: MENTHOL/PHENOL 1 EACH UD MM PRN (14:42)
[2021-06-08] MEDS ORDERED: MAG HYDROX/AL HYDROX/SIMETH 30 ML UNIT-DOSE CUP PO PRN (14:42)
[2021-06-08] MEDS ORDERED: NICOTINE POLACRILEX 2 MG GUM BUC PRN (14:42)
[2021-06-08] MEDS ORDERED: LOPERAMIDE HCL 2 MG CAPSULE PO PRN (14:42)
[2021-06-08] MEDS ORDERED: IBUPROFEN 400 MG TABLET (FP) PO PRN (14:42)
[2021-06-08] MEDS ORDERED: hydrOXYzine PAMOATE 25 MG CAPSULE (FP) PO PRN (14:42)
[2021-06-08] MEDS ORDERED: MAGNESIUM HYDROX 2400MG/30ML ORAL SUSPENSION 30 ML CUP PO PRN (14:42)
[2021-06-08] MEDS ORDERED: guaiFENesin 200 MG/10 ML 10 ML UNIT-DOSE CUPS PO PRN (14:42)
[2021-06-08] MEDS: MELATONIN 5 MG TABLETS PO SCH (21:26)
[2021-06-08] MEDS: THIAMINE HCL 100 MG TABLET (FP) PO SCH (21:26)
[2021-06-08] MEDS: MONTELUKAST NA 10 MG TABLET PO SCH (21:27)
[2021-06-08] MEDS: ATORVASTATIN CA 10 MG TABLET (FP) PO SCH (21:27)
[2021-06-08] MEDS: BUDESONIDE/FORMETEROL FUMARATE 160/4.5 mcg INHALER IH SCH (21:28)
[2021-06-08] MEDS: AMITRIPTYLINE HCL 25 MG TABLET PO SCH (21:48)
[2021-06-09] MEDS: methaDONE HCL 10 MG TABLET PO SCH (06:57)
[2021-06-09] MEDS: amLODIPine BESYLATE 10 MG TABLET (FP) PO SCH (09:48)
[2021-06-09] MEDS: PANTOPRAZOLE 40 MG TABLET PO SCH (09:48)
[2021-06-09] MEDS: BUDESONIDE/FORMETEROL FUMARATE 160/4.5 mcg INHALER IH SCH ×2 (09:48→21:04)
[2021-06-09] MEDS: LISINOPRIL 20 MG TABLET PO SCH (09:48)
[2021-06-09] MEDS: PRENATAL VITAMINS W/ FOLIC ACID TABLET (FP) PO SCH (09:48)
[2021-06-09] MEDS: ASPIRIN 81 MG CHEWABLE TABLETS PO SCH (09:48)
[2021-06-09] MEDS: SERTRALINE HCL 50 MG TABLET (FP) PO SCH (09:48)
[2021-06-09] MEDS ORDERED: PT OWN MED DRAWER 7, Y5N ONE (20:38)
[2021-06-09] MEDS: THIAMINE HCL 100 MG TABLET (FP) PO SCH (21:04)
[2021-06-09] MEDS: ATORVASTATIN CA 10 MG TABLET (FP) PO SCH (21:04)
[2021-06-09] MEDS: MELATONIN 5 MG TABLETS PO SCH (21:04)
[2021-06-09] MEDS: MONTELUKAST NA 10 MG TABLET PO SCH (21:05)
[2021-06-09] MEDS: AMITRIPTYLINE HCL 25 MG TABLET PO SCH (21:05)
[2021-06-10] MEDS: methaDONE HCL 10 MG TABLET PO SCH (06:30)
[2021-06-10] MEDS: BUDESONIDE/FORMETEROL FUMARATE 160/4.5 mcg INHALER IH SCH ×2 (10:32→21:46)
[2021-06-10] MEDS: amLODIPine BESYLATE 10 MG TABLET (FP) PO SCH (10:32)
[2021-06-10] MEDS: ASPIRIN 81 MG CHEWABLE TABLETS PO SCH (10:32)
[2021-06-10] MEDS: PRENATAL VITAMINS W/ FOLIC ACID TABLET (FP) PO SCH (10:32)
[2021-06-10] MEDS: LISINOPRIL 20 MG TABLET PO SCH (10:32)
[2021-06-10] MEDS: SERTRALINE HCL 50 MG TABLET (FP) PO SCH (10:32)
[2021-06-10] MEDS: PANTOPRAZOLE 40 MG TABLET PO SCH (10:33)
[2021-06-10] MEDS: ALBUTEROL SO4 HFA INHALER IH PRN (17:13)
[2021-06-10] MEDS: ATORVASTATIN CA 10 MG TABLET (FP) PO SCH (21:47)
[2021-06-10] MEDS: MONTELUKAST NA 10 MG TABLET PO SCH (21:47)
[2021-06-10] MEDS: THIAMINE HCL 100 MG TABLET (FP) PO SCH (21:47)
[2021-06-10] MEDS: MELATONIN 5 MG TABLETS PO SCH (21:47)
[2021-06-10] MEDS: AMITRIPTYLINE HCL 25 MG TABLET PO SCH (21:47)
[2021-06-11] MEDS: methaDONE HCL 10 MG TABLET PO SCH (06:05)
[2021-06-11] MEDS: NICOTINE 10 MG CARTRIDGE (INHALER) IH PRN ×3 (06:06→21:01)
[2021-06-11] MEDS: ASPIRIN 81 MG CHEWABLE TABLETS PO SCH (10:01)
[2021-06-11] MEDS: LISINOPRIL 20 MG TABLET PO SCH (10:01)
[2021-06-11] MEDS: BUDESONIDE/FORMETEROL FUMARATE 160/4.5 mcg INHALER IH SCH ×2 (10:01→21:02)
[2021-06-11] MEDS: PANTOPRAZOLE 40 MG TABLET PO SCH (10:01)
[2021-06-11] MEDS: PRENATAL VITAMINS W/ FOLIC ACID TABLET (FP) PO SCH (10:01)
[2021-06-11] MEDS: amLODIPine BESYLATE 10 MG TABLET (FP) PO SCH (10:01)
[2021-06-11] MEDS: SERTRALINE HCL 50 MG TABLET (FP) PO SCH (10:01)
[2021-06-11] MEDS: ALBUTEROL SO4 HFA INHALER IH PRN (10:02)
[2021-06-11] MEDS: ATORVASTATIN CA 10 MG TABLET (FP) PO SCH (21:00)
[2021-06-11] MEDS: THIAMINE HCL 100 MG TABLET (FP) PO SCH (21:00)
[2021-06-11] MEDS: MONTELUKAST NA 10 MG TABLET PO SCH (21:00)
[2021-06-11] MEDS: AMITRIPTYLINE HCL 25 MG TABLET PO SCH (21:00)
[2021-06-11] MEDS: MELATONIN 5 MG TABLETS PO SCH (21:00)
[2021-06-12] MEDS: methaDONE HCL 10 MG TABLET PO SCH (06:41)
[2021-06-12] MEDS: BUDESONIDE/FORMETEROL FUMARATE 160/4.5 mcg INHALER IH SCH ×2 (10:48→21:36)
[2021-06-12] MEDS: LISINOPRIL 20 MG TABLET PO SCH (10:48)
[2021-06-12] MEDS: ASPIRIN 81 MG CHEWABLE TABLETS PO SCH (10:48)
[2021-06-12] MEDS: SERTRALINE HCL 50 MG TABLET (FP) PO SCH (10:48)
[2021-06-12] MEDS: PRENATAL VITAMINS W/ FOLIC ACID TABLET (FP) PO SCH (10:49)
[2021-06-12] MEDS: PANTOPRAZOLE 40 MG TABLET PO SCH (10:49)
[2021-06-12] MEDS: amLODIPine BESYLATE 10 MG TABLET (FP) PO SCH (10:49)
[2021-06-12] MEDS: NICOTINE 10 MG CARTRIDGE (INHALER) IH PRN ×3 (10:50→21:36)
[2021-06-12] MEDS: ATORVASTATIN CA 10 MG TABLET (FP) PO SCH (21:36)
[2021-06-12] MEDS: MONTELUKAST NA 10 MG TABLET PO SCH (21:36)
[2021-06-12] MEDS: MELATONIN 5 MG TABLETS PO SCH (21:36)
[2021-06-12] MEDS: AMITRIPTYLINE HCL 25 MG TABLET PO SCH (21:36)
[2021-06-12] MEDS: THIAMINE HCL 100 MG TABLET (FP) PO SCH (21:36)
[2021-06-13] MEDS: methaDONE HCL 10 MG TABLET PO SCH (06:35)
[2021-06-13] MEDS: NICOTINE 10 MG CARTRIDGE (INHALER) IH PRN ×4 (06:35→21:02)
[2021-06-13] MEDS: SERTRALINE HCL 50 MG TABLET (FP) PO SCH (10:01)
[2021-06-13] MEDS: amLODIPine BESYLATE 10 MG TABLET (FP) PO SCH (10:01)
[2021-06-13] MEDS: ASPIRIN 81 MG CHEWABLE TABLETS PO SCH (10:01)
[2021-06-13] MEDS: PRENATAL VITAMINS W/ FOLIC ACID TABLET (FP) PO SCH (10:01)
[2021-06-13] MEDS: PANTOPRAZOLE 40 MG TABLET PO SCH (10:01)
[2021-06-13] MEDS: LISINOPRIL 20 MG TABLET PO SCH (10:01)
[2021-06-13] MEDS: BUDESONIDE/FORMETEROL FUMARATE 160/4.5 mcg INHALER IH SCH ×2 (10:01→21:02)
[2021-06-13] MEDS: MONTELUKAST NA 10 MG TABLET PO SCH (21:01)
[2021-06-13] MEDS: ATORVASTATIN CA 10 MG TABLET (FP) PO SCH (21:01)
[2021-06-13] MEDS: AMITRIPTYLINE HCL 25 MG TABLET PO SCH (21:01)
[2021-06-13] MEDS: MELATONIN 5 MG TABLETS PO SCH (21:02)
[2021-06-13] MEDS: THIAMINE HCL 100 MG TABLET (FP) PO SCH (21:02)
[2021-06-14] MEDS: methaDONE HCL 10 MG TABLET PO SCH (06:33)
[2021-06-14] MEDS: NICOTINE 10 MG CARTRIDGE (INHALER) IH PRN ×4 (06:33→21:42)
[2021-06-14] MEDS: PRENATAL VITAMINS W/ FOLIC ACID TABLET (FP) PO SCH (10:24)
[2021-06-14] MEDS: BUDESONIDE/FORMETEROL FUMARATE 160/4.5 mcg INHALER IH SCH ×2 (10:24→21:42)
[2021-06-14] MEDS: PANTOPRAZOLE 40 MG TABLET PO SCH (10:24)
[2021-06-14] MEDS: ASPIRIN 81 MG CHEWABLE TABLETS PO SCH (10:25)
[2021-06-14] MEDS: LISINOPRIL 20 MG TABLET PO SCH (10:25)
[2021-06-14] MEDS: amLODIPine BESYLATE 10 MG TABLET (FP) PO SCH (10:25)
[2021-06-14] MEDS: SERTRALINE HCL 50 MG TABLET (FP) PO SCH (10:25)
[2021-06-14] MEDS: ALBUTEROL SO4 HFA INHALER IH PRN (10:27)
[2021-06-14] MEDS: ATORVASTATIN CA 10 MG TABLET (FP) PO SCH (21:40)
[2021-06-14] MEDS: AMITRIPTYLINE HCL 25 MG TABLET PO SCH (21:41)
[2021-06-14] MEDS: THIAMINE HCL 100 MG TABLET (FP) PO SCH (21:41)
[2021-06-14] MEDS: MONTELUKAST NA 10 MG TABLET PO SCH (21:41)
[2021-06-14] MEDS: MELATONIN 5 MG TABLETS PO SCH (21:41)
[2021-06-15] MEDS: methaDONE HCL 10 MG TABLET PO SCH (06:31)
[2021-06-15] MEDS: NICOTINE 10 MG CARTRIDGE (INHALER) IH PRN ×4 (06:32→21:03)
[2021-06-15] MEDS ORDERED: PT OWN MED DRAWER 7, Y5N ONE (09:17)
[2021-06-15] MEDS: ALBUTEROL SO4 HFA INHALER IH PRN (09:59)
[2021-06-15] MEDS: SERTRALINE HCL 50 MG TABLET (FP) PO SCH (10:00)
[2021-06-15] MEDS: LISINOPRIL 20 MG TABLET PO SCH (10:00)
[2021-06-15] MEDS: BUDESONIDE/FORMETEROL FUMARATE 160/4.5 mcg INHALER IH SCH ×2 (10:00→21:03)
[2021-06-15] MEDS: ASPIRIN 81 MG CHEWABLE TABLETS PO SCH (10:00)
[2021-06-15] MEDS: amLODIPine BESYLATE 10 MG TABLET (FP) PO SCH (10:01)
[2021-06-15] MEDS: PANTOPRAZOLE 40 MG TABLET PO SCH (10:01)
[2021-06-15] MEDS: PRENATAL VITAMINS W/ FOLIC ACID TABLET (FP) PO SCH (10:02)
[2021-06-15] MEDS: AMITRIPTYLINE HCL 25 MG TABLET PO SCH (21:02)
[2021-06-15] MEDS: MONTELUKAST NA 10 MG TABLET PO SCH (21:02)
[2021-06-15] MEDS: MELATONIN 5 MG TABLETS PO SCH (21:03)
[2021-06-15] MEDS: THIAMINE HCL 100 MG TABLET (FP) PO SCH (21:03)
[2021-06-15] MEDS: ATORVASTATIN CA 10 MG TABLET (FP) PO SCH (21:03)
[2021-06-16] MEDS: NICOTINE 10 MG CARTRIDGE (INHALER) IH PRN ×4 (06:11→21:29)
[2021-06-16] MEDS: methaDONE HCL 10 MG TABLET PO SCH (06:11)
[2021-06-16] MEDS: BUDESONIDE/FORMETEROL FUMARATE 160/4.5 mcg INHALER IH SCH ×2 (10:43→22:16)
[2021-06-16] MEDS: amLODIPine BESYLATE 10 MG TABLET (FP) PO SCH (10:44)
[2021-06-16] MEDS: SERTRALINE HCL 50 MG TABLET (FP) PO SCH (10:44)
[2021-06-16] MEDS: PANTOPRAZOLE 40 MG TABLET PO SCH (10:44)
[2021-06-16] MEDS: ASPIRIN 81 MG CHEWABLE TABLETS PO SCH (10:44)
[2021-06-16] MEDS: PRENATAL VITAMINS W/ FOLIC ACID TABLET (FP) PO SCH (10:44)
[2021-06-16] MEDS: LISINOPRIL 20 MG TABLET PO SCH (10:44)
[2021-06-16] MEDS: THIAMINE HCL 100 MG TABLET (FP) PO SCH (21:27)
[2021-06-16] MEDS: MONTELUKAST NA 10 MG TABLET PO SCH (21:27)
[2021-06-16] MEDS: MELATONIN 5 MG TABLETS PO SCH (21:27)
[2021-06-16] MEDS: ATORVASTATIN CA 10 MG TABLET (FP) PO SCH (21:29)
[2021-06-16] MEDS: AMITRIPTYLINE HCL 25 MG TABLET PO SCH (21:56)
[2021-06-17] MEDS: methaDONE HCL 10 MG TABLET PO SCH (06:03)
[2021-06-17] MEDS: NICOTINE 10 MG CARTRIDGE (INHALER) IH PRN ×4 (06:04→21:01)
[2021-06-17] MEDS: PRENATAL VITAMINS W/ FOLIC ACID TABLET (FP) PO SCH (10:10)
[2021-06-17] MEDS: PANTOPRAZOLE 40 MG TABLET PO SCH (10:10)
[2021-06-17] MEDS: SERTRALINE HCL 50 MG TABLET (FP) PO SCH (10:10)
[2021-06-17] MEDS: ASPIRIN 81 MG CHEWABLE TABLETS PO SCH (10:10)
[2021-06-17] MEDS: LISINOPRIL 20 MG TABLET PO SCH (10:10)
[2021-06-17] MEDS: BUDESONIDE/FORMETEROL FUMARATE 160/4.5 mcg INHALER IH SCH ×2 (10:10→21:01)
[2021-06-17] MEDS: amLODIPine BESYLATE 10 MG TABLET (FP) PO SCH (10:11)
[2021-06-17] MEDS: ALBUTEROL SO4 HFA INHALER IH PRN (10:11)
[2021-06-17] MEDS: MELATONIN 5 MG TABLETS PO SCH (21:00)
[2021-06-17] MEDS: ATORVASTATIN CA 10 MG TABLET (FP) PO SCH (21:00)
[2021-06-17] MEDS: THIAMINE HCL 100 MG TABLET (FP) PO SCH (21:00)
[2021-06-17] MEDS: AMITRIPTYLINE HCL 25 MG TABLET PO SCH (21:00)
[2021-06-17] MEDS: MONTELUKAST NA 10 MG TABLET PO SCH (21:01)
[2021-06-18] MEDS: methaDONE HCL 10 MG TABLET PO SCH (06:00)
[2021-06-18] MEDS: NICOTINE 10 MG CARTRIDGE (INHALER) IH PRN ×4 (06:01→21:04)
[2021-06-18] MEDS: ALBUTEROL SO4 HFA INHALER IH PRN ×2 (10:33→21:04)
[2021-06-18] MEDS: BUDESONIDE/FORMETEROL FUMARATE 160/4.5 mcg INHALER IH SCH ×2 (10:33→21:02)
[2021-06-18] MEDS: ASPIRIN 81 MG CHEWABLE TABLETS PO SCH (10:34)
[2021-06-18] MEDS: PANTOPRAZOLE 40 MG TABLET PO SCH (10:34)
[2021-06-18] MEDS: SERTRALINE HCL 50 MG TABLET (FP) PO SCH (10:34)
[2021-06-18] MEDS: PRENATAL VITAMINS W/ FOLIC ACID TABLET (FP) PO SCH (10:34)
[2021-06-18] MEDS: amLODIPine BESYLATE 10 MG TABLET (FP) PO SCH (10:36)
[2021-06-18] MEDS: LISINOPRIL 20 MG TABLET PO SCH (10:36)
[2021-06-18] MEDS: MELATONIN 5 MG TABLETS PO SCH (21:01)
[2021-06-18] MEDS: THIAMINE HCL 100 MG TABLET (FP) PO SCH (21:01)
[2021-06-18] MEDS: ATORVASTATIN CA 10 MG TABLET (FP) PO SCH (21:02)
[2021-06-18] MEDS: MONTELUKAST NA 10 MG TABLET PO SCH (21:02)
[2021-06-18] MEDS: AMITRIPTYLINE HCL 25 MG TABLET PO SCH (21:52)
[2021-06-19] MEDS: NICOTINE 10 MG CARTRIDGE (INHALER) IH PRN ×4 (06:07→22:31)
[2021-06-19] MEDS: methaDONE HCL 10 MG TABLET PO SCH (06:07)
[2021-06-19] MEDS: ALBUTEROL SO4 HFA INHALER IH PRN (09:48)
[2021-06-19] MEDS: BUDESONIDE/FORMETEROL FUMARATE 160/4.5 mcg INHALER IH SCH ×2 (09:48→21:14)
[2021-06-19] MEDS: PRENATAL VITAMINS W/ FOLIC ACID TABLET (FP) PO SCH (09:48)
[2021-06-19] MEDS: SERTRALINE HCL 50 MG TABLET (FP) PO SCH (09:52)
[2021-06-19] MEDS: LISINOPRIL 20 MG TABLET PO SCH (09:52)
[2021-06-19] MEDS: PANTOPRAZOLE 40 MG TABLET PO SCH (09:52)
[2021-06-19] MEDS: ASPIRIN 81 MG CHEWABLE TABLETS PO SCH (09:52)
[2021-06-19] MEDS: amLODIPine BESYLATE 10 MG TABLET (FP) PO SCH (09:52)
[2021-06-19] MEDS: THIAMINE HCL 100 MG TABLET (FP) PO SCH (21:12)
[2021-06-19] MEDS: MELATONIN 5 MG TABLETS PO SCH (21:12)
[2021-06-19] MEDS: ATORVASTATIN CA 10 MG TABLET (FP) PO SCH (21:13)
[2021-06-19] MEDS: AMITRIPTYLINE HCL 25 MG TABLET PO SCH (21:13)
[2021-06-19] MEDS: MONTELUKAST NA 10 MG TABLET PO SCH (21:13)
[2021-06-20] MEDS: NICOTINE 10 MG CARTRIDGE (INHALER) IH PRN ×4 (05:59→21:03)
[2021-06-20] MEDS: methaDONE HCL 10 MG TABLET PO SCH (05:59)
[2021-06-20] MEDS: BUDESONIDE/FORMETEROL FUMARATE 160/4.5 mcg INHALER IH SCH ×2 (10:55→21:03)
[2021-06-20] MEDS: LISINOPRIL 20 MG TABLET PO SCH (10:56)
[2021-06-20] MEDS: SERTRALINE HCL 50 MG TABLET (FP) PO SCH (10:56)
[2021-06-20] MEDS: PANTOPRAZOLE 40 MG TABLET PO SCH (10:56)
[2021-06-20] MEDS: PRENATAL VITAMINS W/ FOLIC ACID TABLET (FP) PO SCH (10:56)
[2021-06-20] MEDS: amLODIPine BESYLATE 10 MG TABLET (FP) PO SCH (10:56)
[2021-06-20] MEDS: ASPIRIN 81 MG CHEWABLE TABLETS PO SCH (10:56)
[2021-06-20] MEDS: ALBUTEROL SO4 HFA INHALER IH PRN (10:58)
[2021-06-20] MEDS ORDERED: PT OWN MED DRAWER 7, Y5N ONE (18:53)
[2021-06-20] MEDS: THIAMINE HCL 100 MG TABLET (FP) PO SCH (21:01)
[2021-06-20] MEDS: MELATONIN 5 MG TABLETS PO SCH (21:01)
[2021-06-20] MEDS: ATORVASTATIN CA 10 MG TABLET (FP) PO SCH (21:02)
[2021-06-20] MEDS: MONTELUKAST NA 10 MG TABLET PO SCH (21:02)
[2021-06-20] MEDS: AMITRIPTYLINE HCL 25 MG TABLET PO SCH (21:02)
[2021-06-21] MEDS: NICOTINE 10 MG CARTRIDGE (INHALER) IH PRN ×3 (06:16→21:21)
[2021-06-21] MEDS: methaDONE HCL 10 MG TABLET PO SCH (06:16)
[2021-06-21] MEDS: amLODIPine BESYLATE 10 MG TABLET (FP) PO SCH (10:03)
[2021-06-21] MEDS: BUDESONIDE/FORMETEROL FUMARATE 160/4.5 mcg INHALER IH SCH ×2 (10:03→21:31)
[2021-06-21] MEDS: ALBUTEROL SO4 HFA INHALER IH PRN (10:03)
[2021-06-21] MEDS: SERTRALINE HCL 50 MG TABLET (FP) PO SCH (10:03)
[2021-06-21] MEDS: PRENATAL VITAMINS W/ FOLIC ACID TABLET (FP) PO SCH (10:03)
[2021-06-21] MEDS: ASPIRIN 81 MG CHEWABLE TABLETS PO SCH (10:04)
[2021-06-21] MEDS: PANTOPRAZOLE 40 MG TABLET PO SCH (10:04)
[2021-06-21] MEDS: LISINOPRIL 20 MG TABLET PO SCH (10:04)
[2021-06-21] MEDS: THIAMINE HCL 100 MG TABLET (FP) PO SCH (21:20)
[2021-06-21] MEDS: ATORVASTATIN CA 10 MG TABLET (FP) PO SCH (21:20)
[2021-06-21] MEDS: MONTELUKAST NA 10 MG TABLET PO SCH (21:20)
[2021-06-21] MEDS: MELATONIN 5 MG TABLETS PO SCH (21:20)
[2021-06-21] MEDS: AMITRIPTYLINE HCL 25 MG TABLET PO SCH (21:20)
[2021-06-22] MEDS: methaDONE HCL 10 MG TABLET PO SCH (06:24)
[2021-06-22] MEDS: NICOTINE 10 MG CARTRIDGE (INHALER) IH PRN ×4 (06:24→21:01)
[2021-06-22] MEDS: ALBUTEROL SO4 HFA INHALER IH PRN (09:34)
[2021-06-22] MEDS: amLODIPine BESYLATE 10 MG TABLET (FP) PO SCH (09:35)
[2021-06-22] MEDS: PANTOPRAZOLE 40 MG TABLET PO SCH (09:35)
[2021-06-22] MEDS: ASPIRIN 81 MG CHEWABLE TABLETS PO SCH (09:35)
[2021-06-22] MEDS: LISINOPRIL 20 MG TABLET PO SCH (09:35)
[2021-06-22] MEDS: BUDESONIDE/FORMETEROL FUMARATE 160/4.5 mcg INHALER IH SCH ×2 (09:35→21:01)
[2021-06-22] MEDS: SERTRALINE HCL 50 MG TABLET (FP) PO SCH (09:35)
[2021-06-22] MEDS: PRENATAL VITAMINS W/ FOLIC ACID TABLET (FP) PO SCH (09:36)
[2021-06-22] MEDS: ATORVASTATIN CA 10 MG TABLET (FP) PO SCH (21:00)
[2021-06-22] MEDS: MONTELUKAST NA 10 MG TABLET PO SCH (21:00)
[2021-06-22] MEDS: THIAMINE HCL 100 MG TABLET (FP) PO SCH (21:00)
[2021-06-22] MEDS: AMITRIPTYLINE HCL 25 MG TABLET PO SCH (21:00)
[2021-06-22] MEDS: MELATONIN 5 MG TABLETS PO SCH (21:01)
[2021-06-23] MEDS: NICOTINE 10 MG CARTRIDGE (INHALER) IH PRN ×2 (06:16→09:39)
[2021-06-23] MEDS: methaDONE HCL 10 MG TABLET PO SCH (06:16)
[2021-06-23] MEDS: ALBUTEROL SO4 HFA INHALER IH PRN (09:36)
[2021-06-23] MEDS: ASPIRIN 81 MG CHEWABLE TABLETS PO SCH (09:36)
[2021-06-23] MEDS: BUDESONIDE/FORMETEROL FUMARATE 160/4.5 mcg INHALER IH SCH ×2 (09:36→21:38)
[2021-06-23] MEDS: LISINOPRIL 20 MG TABLET PO SCH (09:37)
[2021-06-23] MEDS: SERTRALINE HCL 50 MG TABLET (FP) PO SCH (09:37)
[2021-06-23] MEDS: PANTOPRAZOLE 40 MG TABLET PO SCH (09:37)
[2021-06-23] MEDS: amLODIPine BESYLATE 10 MG TABLET (FP) PO SCH (09:37)
[2021-06-23] MEDS: PRENATAL VITAMINS W/ FOLIC ACID TABLET (FP) PO SCH (09:38)
[2021-06-23] MEDS: AMITRIPTYLINE HCL 25 MG TABLET PO SCH (21:36)
[2021-06-23] MEDS: MELATONIN 5 MG TABLETS PO SCH (21:37)
[2021-06-23] MEDS: ATORVASTATIN CA 10 MG TABLET (FP) PO SCH (21:37)
[2021-06-23] MEDS: MONTELUKAST NA 10 MG TABLET PO SCH (21:37)
[2021-06-23] MEDS: THIAMINE HCL 100 MG TABLET (FP) PO SCH (21:38)
[2021-06-24] MEDS: NICOTINE 10 MG CARTRIDGE (INHALER) IH PRN ×3 (05:56→21:04)
[2021-06-24] MEDS: methaDONE HCL 10 MG TABLET PO SCH (05:56)
[2021-06-24] MEDS: BUDESONIDE/FORMETEROL FUMARATE 160/4.5 mcg INHALER IH SCH ×2 (10:24→21:04)
[2021-06-24] MEDS: PRENATAL VITAMINS W/ FOLIC ACID TABLET (FP) PO SCH (10:25)
[2021-06-24] MEDS: PANTOPRAZOLE 40 MG TABLET PO SCH (10:25)
[2021-06-24] MEDS: LISINOPRIL 20 MG TABLET PO SCH (10:25)
[2021-06-24] MEDS: SERTRALINE HCL 50 MG TABLET (FP) PO SCH (10:25)
[2021-06-24] MEDS: ALBUTEROL SO4 HFA INHALER IH PRN (10:26)
[2021-06-24] MEDS: amLODIPine BESYLATE 10 MG TABLET (FP) PO SCH (10:26)
[2021-06-24] MEDS: ASPIRIN 81 MG CHEWABLE TABLETS PO SCH (10:26)
[2021-06-24] MEDS: AMITRIPTYLINE HCL 25 MG TABLET PO SCH (21:01)
[2021-06-24] MEDS: THIAMINE HCL 100 MG TABLET (FP) PO SCH (21:02)
[2021-06-24] MEDS: MELATONIN 5 MG TABLETS PO SCH (21:02)
[2021-06-24] MEDS: ATORVASTATIN CA 10 MG TABLET (FP) PO SCH (21:04)
[2021-06-24] MEDS: MONTELUKAST NA 10 MG TABLET PO SCH (21:04)
[2021-06-25] MEDS: methaDONE HCL 10 MG TABLET PO SCH (06:10)
[2021-06-25] MEDS: NICOTINE 10 MG CARTRIDGE (INHALER) IH PRN ×4 (06:10→21:17)
[2021-06-25] MEDS: BUDESONIDE/FORMETEROL FUMARATE 160/4.5 mcg INHALER IH SCH ×2 (09:35→21:17)
[2021-06-25] MEDS: PRENATAL VITAMINS W/ FOLIC ACID TABLET (FP) PO SCH (09:36)
[2021-06-25] MEDS: ASPIRIN 81 MG CHEWABLE TABLETS PO SCH (09:36)
[2021-06-25] MEDS: amLODIPine BESYLATE 10 MG TABLET (FP) PO SCH (09:36)
[2021-06-25] MEDS: LISINOPRIL 20 MG TABLET PO SCH (09:36)
[2021-06-25] MEDS: SERTRALINE HCL 50 MG TABLET (FP) PO SCH (09:36)
[2021-06-25] MEDS: ALBUTEROL SO4 HFA INHALER IH PRN (09:38)
[2021-06-25] MEDS: PANTOPRAZOLE 40 MG TABLET PO SCH (10:34)
[2021-06-25] MEDS: MONTELUKAST NA 10 MG TABLET PO SCH (21:16)
[2021-06-25] MEDS: MELATONIN 5 MG TABLETS PO SCH (21:16)
[2021-06-25] MEDS: AMITRIPTYLINE HCL 25 MG TABLET PO SCH (21:16)
[2021-06-25] MEDS: THIAMINE HCL 100 MG TABLET (FP) PO SCH (21:16)
[2021-06-25] MEDS: ATORVASTATIN CA 10 MG TABLET (FP) PO SCH (21:16)
[2021-06-26] MEDS: methaDONE HCL 10 MG TABLET PO SCH (06:24)
[2021-06-26 06:56] VITALS: BP 117/71; PULSE 78; TEMP 98.8
[2021-06-26] MEDS: BUDESONIDE/FORMETEROL FUMARATE 160/4.5 mcg INHALER IH SCH (09:21)
[2021-06-26] MEDS: PRENATAL VITAMINS W/ FOLIC ACID TABLET (FP) PO SCH (09:22)
[2021-06-26] MEDS: ALBUTEROL SO4 HFA INHALER IH PRN (09:22)
[2021-06-26] MEDS: amLODIPine BESYLATE 10 MG TABLET (FP) PO SCH (09:22)
[2021-06-26] MEDS: SERTRALINE HCL 50 MG TABLET (FP) PO SCH (09:25)
[2021-06-26] MEDS: PANTOPRAZOLE 40 MG TABLET PO SCH (09:25)
[2021-06-26] MEDS: LISINOPRIL 20 MG TABLET PO SCH (09:25)
[2021-06-26] MEDS: ASPIRIN 81 MG CHEWABLE TABLETS PO SCH (09:25)
== END 2021-06-26 09:29 | disposition home or self-care (01) | DRG 772 ==
LOC: YASAS 13:58 → Y3W 13:59
PROVIDERS: ADMIT Allergy & Immunology; ATTEND Allergy & Immunology
PROC: HZ42ZZZ Group Counseling for Substance Abuse Treatment, Cognitive-Behavioral (ICD-10-PCS; principal; 2021-06-08)
DX: F10.20 Alcohol dependence, uncomplicated (principal); F11.20 Opioid dependence, uncomplicated; F14.20 Cocaine dependence, uncomplicated; F17.210 Nicotine dependence, cigarettes, uncomplicated; F32.9 Major depressive disorder, single episode, unspecified; F41.9 Anxiety disorder, unspecified; F19.282 Other psychoactive substance dependence with psychoactive substance-induced sleep disorder; I10 Essential (primary) hypertension; J44.9 Chronic obstructive pulmonary disease, unspecified; E11.9 Type 2 diabetes mellitus without complications; K21.9 Gastro-esophageal reflux disease without esophagitis; Z86.74 Personal history of sudden cardiac arrest; Z62.810 Personal history of physical and sexual abuse in childhood; Z88.8 Allergy status to other drugs, medicaments and biological substances; Z91.013 Allergy to seafood; Z56.0 Unemployment, unspecified; Z59.00 Homelessness unspecified
CPT/HCPCS: C9803; U0003; U0005

== ENCOUNTER 2021-11-29 16:47 | Inpatient (IN) | payer OTHER ==
[2021-11-29 18:46] VITALS: BMI 33.6
[2021-11-30] MEDS ORDERED: DICYCLOMINE HCL 10 MG CAPSULE PO PRN (08:48)
[2021-11-30] MEDS ORDERED: MAGNESIUM HYDROX 2400MG/30ML ORAL SUSPENSION 30 ML CUP PO PRN (08:48)
[2021-11-30] MEDS ORDERED: IBUPROFEN 400 MG TABLET (FP) PO PRN (08:48)
[2021-11-30] MEDS ORDERED: MAGNESIUM CITRATE 300 ML BOTTLE PO PRN (08:48)
[2021-11-30] MEDS ORDERED: MAG HYDROX/AL HYDROX/SIMETH 30 ML UNIT-DOSE CUP PO PRN (08:48)
[2021-11-30] MEDS ORDERED: ACETAMINOPHEN 325 MG TABLET (FP) PO PRN (08:48)
[2021-11-30] MEDS ORDERED: BISMUTH SUBSALICYLATE 262 MG/15 ML BTL PO PRN (08:48)
[2021-11-30] MEDS ORDERED: NICOTINE 10 MG CARTRIDGE (INHALER) IH PRN (08:48)
[2021-11-30] MEDS ORDERED: diazePAM 5 MG TABLET PO PRN (08:48)
[2021-11-30] MEDS ORDERED: hydrOXYzine PAMOATE 25 MG CAPSULE (FP) PO SCH (10:00)
[2021-11-30] MEDS ORDERED: amLODIPine BESYLATE 5 MG TABLET (FP) PO ONE (10:00)
[2021-11-30] MEDS ORDERED: diazePAM 5 MG TABLET ONE (11:05)
[2021-11-30] MEDS: diazePAM 5 MG TABLET PO SCH ×3 (11:08→22:25)
[2021-11-30] MEDS ORDERED: methaDONE HCL 10 MG TABLET PO SCH (12:00)
[2021-11-30 14:11] LABS: HEMOGLOBIN 13.1 GM/dL (11.7-16.9); MCH 29.6 pg (25.7-33.7); MCHC 34.4 g/dl (32.0-35.9); MEAN CELL VOLUME 86.1 fl (80-96); PLATELET COUNT 190 10^3/uL (134-434); RBC 4.42 M/mm3 (4.00-5.60); RDW 14.6 % (11.9-15.9); WHITE BLOOD COUNT 5.7 K/mm3 (4.0-10.0)
[2021-11-30 14:44] LABS: CALCIUM 8.5 mg/dL (8.5-10.1)
[2021-11-30 14:45] LABS: ALBUMIN 3.3 g/dl (3.4-5.0)
[2021-11-30 14:48] LABS: CREATININE 1.9 mg/dL (0.55-1.3)
[2021-11-30] MEDS ORDERED: methaDONE HCL 10 MG TABLET ONE (14:48)
[2021-11-30] MEDS ORDERED: methaDONE HCL 40 MG DISPERSABLE TABLET ONE (14:49)
[2021-11-30] MEDS: PANTOPRAZOLE 40 MG TABLET PO SCH (14:51)
[2021-11-30] MEDS: ASPIRIN 81 MG CHEWABLE TABLETS PO SCH (14:51)
[2021-11-30] MEDS: LISINOPRIL 20 MG TABLET PO SCH (14:51)
[2021-11-30] MEDS: BUDESONIDE/FORMETEROL FUMARATE 160/4.5 mcg INHALER IH SCH ×2 (14:52→22:25)
[2021-11-30] MEDS: methaDONE 40 MG, methaDONE 10 MG PO SCH (14:52)
[2021-11-30] MEDS: PRENATAL VITAMINS W/ FOLIC ACID TABLET (FP) PO SCH (14:52)
[2021-11-30] MEDS: METHOCARBAMOL 500 MG TABLET PO PRN (14:52)
[2021-11-30] MEDS: ALBUTEROL SO4 HFA INHALER IH PRN ×2 (14:53→22:26)
[2021-11-30] MEDS: NICOTINE 14 MG/24 HOURS TOPICAL PATCH TD SCH (14:54)
[2021-11-30] MEDS: COLCHICINE 0.6 MG CAPSULE PO SCH (15:54)
[2021-11-30] MEDS ORDERED: MELATONIN 5 MG TABLETS PO SCH (22:00)
[2021-11-30] MEDS ORDERED: GABAPENTIN 300 MG CAPSULE PO SCH (22:00)
[2021-11-30] MEDS: MONTELUKAST NA 10 MG TABLET PO SCH (22:24)
[2021-11-30] MEDS: GABAPENTIN 100 MG CAPSULE PO SCH (22:24)
[2021-11-30] MEDS: busPIRone HCL 5 MG TABLET PO SCH (22:24)
[2021-11-30] MEDS: AMITRIPTYLINE HCL 25 MG TABLET PO SCH (22:24)
[2021-11-30] MEDS: ATORVASTATIN CA 10 MG TABLET (FP) PO SCH (22:25)
[2021-11-30] MEDS: THIAMINE HCL 100 MG TABLET (FP) PO SCH (22:25)
[2021-12-01] MEDS ORDERED: methaDONE HCL 10 MG TABLET ONE (04:28)
[2021-12-01] MEDS ORDERED: methaDONE HCL 40 MG DISPERSABLE TABLET ONE (04:28)
[2021-12-01] MEDS: diazePAM 5 MG TABLET PO SCH ×4 (06:13→22:22)
[2021-12-01] MEDS: methaDONE 40 MG, methaDONE 10 MG PO SCH (06:13)
[2021-12-01] MEDS: GABAPENTIN 100 MG CAPSULE PO SCH ×3 (07:05→22:20)
[2021-12-01] MEDS ORDERED: SERTRALINE HCL 50 MG TABLET (FP) PO SCH (10:00)
[2021-12-01] MEDS: ASPIRIN 81 MG CHEWABLE TABLETS PO SCH (10:25)
[2021-12-01] MEDS: PRENATAL VITAMINS W/ FOLIC ACID TABLET (FP) PO SCH (10:25)
[2021-12-01] MEDS: ALBUTEROL SO4 HFA INHALER IH PRN (10:25)
[2021-12-01] MEDS: BUDESONIDE/FORMETEROL FUMARATE 160/4.5 mcg INHALER IH SCH ×2 (10:25→22:19)
[2021-12-01] MEDS: busPIRone HCL 5 MG TABLET PO SCH ×2 (10:26→22:20)
[2021-12-01] MEDS: PANTOPRAZOLE 40 MG TABLET PO SCH (10:26)
[2021-12-01] MEDS: ONDANSETRON *ODT* 4 MG TABLET SL PRN (10:28)
[2021-12-01] MEDS: SERTRALINE HCL 50 MG TABLET (FP) PO SCH (10:28)
[2021-12-01] MEDS: TOPIRAMATE 25 MG TABLET PO SCH (10:30)
[2021-12-01] MEDS: COLCHICINE 0.6 MG CAPSULE PO SCH (10:31)
[2021-12-01] MEDS: NICOTINE 14 MG/24 HOURS TOPICAL PATCH TD SCH (10:31)
[2021-12-01] MEDS: LISINOPRIL 20 MG TABLET PO SCH (10:34)
[2021-12-01] MEDS: amLODIPine BESYLATE 10 MG TABLET (FP) PO SCH (10:34)
[2021-12-01] MEDS: AMITRIPTYLINE HCL 25 MG TABLET PO SCH (22:20)
[2021-12-01] MEDS: ATORVASTATIN CA 10 MG TABLET (FP) PO SCH (22:20)
[2021-12-01] MEDS: THIAMINE HCL 100 MG TABLET (FP) PO SCH (22:20)
[2021-12-01] MEDS: MONTELUKAST NA 10 MG TABLET PO SCH (22:20)
[2021-12-02] MEDS: ACETAMINOPHEN 325 MG TABLET (FP) PO PRN ×2 (03:11→22:18)
[2021-12-02] MEDS ORDERED: methaDONE HCL 10 MG TABLET ONE (04:33)
[2021-12-02] MEDS ORDERED: methaDONE HCL 40 MG DISPERSABLE TABLET ONE (04:33)
[2021-12-02] MEDS: methaDONE 40 MG, methaDONE 10 MG PO SCH (05:05)
[2021-12-02] MEDS: diazePAM 5 MG TABLET PO SCH ×3 (05:05→22:17)
[2021-12-02] MEDS: GABAPENTIN 100 MG CAPSULE PO SCH ×3 (05:07→22:16)
[2021-12-02] MEDS: METHOCARBAMOL 500 MG TABLET PO PRN (09:15)
[2021-12-02] MEDS: ALBUTEROL SO4 HFA INHALER IH PRN (10:03)
[2021-12-02] MEDS: PRENATAL VITAMINS W/ FOLIC ACID TABLET (FP) PO SCH (10:03)
[2021-12-02] MEDS: BUDESONIDE/FORMETEROL FUMARATE 160/4.5 mcg INHALER IH SCH ×2 (10:03→22:16)
[2021-12-02] MEDS: ASPIRIN 81 MG CHEWABLE TABLETS PO SCH (10:04)
[2021-12-02] MEDS: PANTOPRAZOLE 40 MG TABLET PO SCH (10:04)
[2021-12-02] MEDS: busPIRone HCL 5 MG TABLET PO SCH ×2 (10:04→22:16)
[2021-12-02] MEDS: amLODIPine BESYLATE 10 MG TABLET (FP) PO SCH (10:04)
[2021-12-02] MEDS: LISINOPRIL 20 MG TABLET PO SCH (10:04)
[2021-12-02] MEDS: SERTRALINE HCL 50 MG TABLET (FP) PO SCH (10:04)
[2021-12-02] MEDS: TOPIRAMATE 25 MG TABLET PO SCH (10:05)
[2021-12-02] MEDS: NICOTINE 14 MG/24 HOURS TOPICAL PATCH TD SCH (10:05)
[2021-12-02] MEDS: COLCHICINE 0.6 MG CAPSULE PO SCH (10:05)
[2021-12-02 14:07] LABS: SARS-CoV-2 NAA Not Detected (Not Detected)
[2021-12-02] MEDS: AMITRIPTYLINE HCL 25 MG TABLET PO SCH (22:16)
[2021-12-02] MEDS: ATORVASTATIN CA 10 MG TABLET (FP) PO SCH (22:16)
[2021-12-02] MEDS: MONTELUKAST NA 10 MG TABLET PO SCH (22:16)
[2021-12-02] MEDS: THIAMINE HCL 100 MG TABLET (FP) PO SCH (22:16)
[2021-12-03] MEDS ORDERED: methaDONE HCL 40 MG DISPERSABLE TABLET ONE (04:00)
[2021-12-03] MEDS ORDERED: methaDONE HCL 10 MG TABLET ONE (04:00)
[2021-12-03] MEDS: methaDONE 40 MG, methaDONE 10 MG PO SCH (05:10)
[2021-12-03] MEDS: GABAPENTIN 100 MG CAPSULE PO SCH ×3 (05:10→22:18)
[2021-12-03] MEDS: diazePAM 5 MG TABLET PO SCH ×2 (05:11→17:41)
[2021-12-03] MEDS: BUDESONIDE/FORMETEROL FUMARATE 160/4.5 mcg INHALER IH SCH ×2 (10:08→21:33)
[2021-12-03] MEDS: ALBUTEROL SO4 HFA INHALER IH PRN ×2 (10:09→21:33)
[2021-12-03] MEDS: PANTOPRAZOLE 40 MG TABLET PO SCH (10:09)
[2021-12-03] MEDS: LISINOPRIL 10 MG TABLET PO SCH (10:09)
[2021-12-03] MEDS: ASPIRIN 81 MG CHEWABLE TABLETS PO SCH (10:09)
[2021-12-03] MEDS: SERTRALINE HCL 50 MG TABLET (FP) PO SCH (10:09)
[2021-12-03] MEDS: PRENATAL VITAMINS W/ FOLIC ACID TABLET (FP) PO SCH (10:09)
[2021-12-03] MEDS: NICOTINE 14 MG/24 HOURS TOPICAL PATCH TD SCH (10:10)
[2021-12-03] MEDS: ONDANSETRON *ODT* 4 MG TABLET SL PRN (10:10)
[2021-12-03] MEDS: amLODIPine BESYLATE 10 MG TABLET (FP) PO SCH (10:10)
[2021-12-03] MEDS: TOPIRAMATE 25 MG TABLET PO SCH (10:10)
[2021-12-03 10:12] LABS: BLOOD UREA NITROGEN 20.8 mg/dL (7-18)
[2021-12-03 10:14] LABS: CREATININE 1.9 mg/dL (0.55-1.3)
[2021-12-03] MEDS: busPIRone HCL 5 MG TABLET PO SCH ×2 (10:43→22:18)
[2021-12-03] MEDS: COLCHICINE 0.6 MG CAPSULE PO SCH (10:43)
[2021-12-03] MEDS: BENZOCAINE/MENTHOL (CHLORASEPTIC ) LOZENGE MM PRN (14:52)
[2021-12-03] MEDS: THIAMINE HCL 100 MG TABLET (FP) PO SCH (22:18)
[2021-12-03] MEDS: MONTELUKAST NA 10 MG TABLET PO SCH (22:18)
[2021-12-03] MEDS: AMITRIPTYLINE HCL 25 MG TABLET PO SCH (22:18)
[2021-12-03] MEDS: ATORVASTATIN CA 10 MG TABLET (FP) PO SCH (22:18)
[2021-12-03] MEDS: LOPERAMIDE HCL 2 MG CAPSULE PO PRN (22:21)
[2021-12-04] MEDS: BENZOCAINE/MENTHOL (CHLORASEPTIC ) LOZENGE MM PRN ×2 (01:06→05:27)
[2021-12-04] MEDS ORDERED: methaDONE HCL 10 MG TABLET ONE (04:00)
[2021-12-04] MEDS ORDERED: methaDONE HCL 40 MG DISPERSABLE TABLET ONE (04:00)
[2021-12-04] MEDS: methaDONE 40 MG, methaDONE 10 MG PO SCH (05:26)
[2021-12-04] MEDS: GABAPENTIN 100 MG CAPSULE PO SCH (05:26)
[2021-12-04] MEDS: LOPERAMIDE HCL 2 MG CAPSULE PO PRN (05:27)
[2021-12-04] MEDS ORDERED: diazePAM 5 MG TABLET PO ONE (06:00)
[2021-12-04] MEDS: PANTOPRAZOLE 40 MG TABLET PO SCH (09:14)
[2021-12-04] MEDS: SERTRALINE HCL 50 MG TABLET (FP) PO SCH (09:14)
[2021-12-04] MEDS: amLODIPine BESYLATE 10 MG TABLET (FP) PO SCH (09:14)
[2021-12-04] MEDS: LISINOPRIL 10 MG TABLET PO SCH (09:14)
[2021-12-04] MEDS: busPIRone HCL 5 MG TABLET PO SCH (09:14)
[2021-12-04] MEDS: ASPIRIN 81 MG CHEWABLE TABLETS PO SCH (09:15)
[2021-12-04] MEDS: COLCHICINE 0.6 MG CAPSULE PO SCH (09:15)
[2021-12-04] MEDS: BUDESONIDE/FORMETEROL FUMARATE 160/4.5 mcg INHALER IH SCH (09:15)
[2021-12-04] MEDS: PRENATAL VITAMINS W/ FOLIC ACID TABLET (FP) PO SCH (09:15)
[2021-12-04] MEDS: NICOTINE 14 MG/24 HOURS TOPICAL PATCH TD SCH (09:15)
[2021-12-04] MEDS: TOPIRAMATE 25 MG TABLET PO SCH (09:15)
[2021-12-04 09:29] VITALS: BP 140/74; PULSE 101; TEMP 98.1
== END 2021-12-04 12:24 | disposition other institution (70) | DRG 773 ==
LOC: YASAS 16:47 → Y6N 11-30 13:17
PROVIDERS: ADMIT Allergy & Immunology; ATTEND Surgery
PROC: HZ2ZZZZ Detoxification Services for Substance Abuse Treatment (ICD-10-PCS; principal; 2021-11-30)
DX: F10.230 Alcohol dependence with withdrawal, uncomplicated (principal); F11.20 Opioid dependence, uncomplicated; F13.20 Sedative, hypnotic or anxiolytic dependence, uncomplicated; F20.9 Schizophrenia, unspecified; F19.282 Other psychoactive substance dependence with psychoactive substance-induced sleep disorder; F19.280 Other psychoactive substance dependence with psychoactive substance-induced anxiety disorder; F19.24 Other psychoactive substance dependence with psychoactive substance-induced mood disorder; F41.9 Anxiety disorder, unspecified; F32.A Depression, unspecified; E78.5 Hyperlipidemia, unspecified; E11.9 Type 2 diabetes mellitus without complications; I10 Essential (primary) hypertension; K21.9 Gastro-esophageal reflux disease without esophagitis; M10.9 Gout, unspecified; J44.9 Chronic obstructive pulmonary disease, unspecified; R50.9 Fever, unspecified; R05.9 Cough, unspecified; Z62.810 Personal history of physical and sexual abuse in childhood; Q61.3 Polycystic kidney, unspecified; Z86.74 Personal history of sudden cardiac arrest; Z88.8 Allergy status to other drugs, medicaments and biological substances; Z91.013 Allergy to seafood
CPT/HCPCS: 36415; 80053; 82565; 82962; 84520; 85027; 86780; C9803-CS; Q0162; U0003; U0005

== ENCOUNTER 2021-12-04 16:33 | Inpatient (IN) | payer OTHER ==
[2021-12-04] MEDS ORDERED: ACETAMINOPHEN 1000 MG/100 ML BAG IVPB ONE (17:01)
[2021-12-04] MEDS ORDERED: SODIUM CHLORIDE 0.9% 500 ML INFUS.BAG IV ONE (17:11)
[2021-12-04] MEDS ORDERED: ACETAMINOPHEN INJECTION 100 ML IVPB ONE (17:18)
[2021-12-04] MEDS: ALBUTEROL SO4 2.5/IPRATROPIUM 0.5 INH SOL 3 ML VIAL.NEB. NEB SCH ×3 (18:15→18:48)
[2021-12-04] MEDS ORDERED: ALBUTEROL SO4 2.5/IPRATROPIUM 0.5 INH SOL 3 ML VIAL.NEB. NEB ONE (18:24)
[2021-12-04 18:57] LABS: BASO % 0.4 % (0-2.0); EOS % 1.7 % (0-4.5); HEMOGLOBIN 12.7 GM/dL (11.7-16.9); LYMPH % 17.3 % (8-40); MCH 28.6 pg (25.7-33.7); MCHC 33.3 g/dl (32.0-35.9); MEAN CELL VOLUME 85.8 fl (80-96); MEAN PLT VOLUME 8.3 fl (7.5-11.1); MONO % 8.6 % (3.8-10.2); PLATELET COUNT 173 10^3/uL (134-434); RBC 4.42 M/mm3 (4.00-5.60); WHITE BLOOD COUNT 8.5 K/mm3 (4.0-10.0)
[2021-12-04 19:18] LABS: BLOOD UREA NITROGEN 28.8 mg/dL (7-18); MAGNESIUM 2.3 mg/dL (1.8-2.4)
[2021-12-04 19:19] LABS: ALBUMIN 3.4 g/dl (3.4-5.0)
[2021-12-04 19:22] LABS: CREATININE 2.5 mg/dL (0.55-1.3)
[2021-12-04 19:24] LABS: BILIRUBIN,TOTAL 0.4 mg/dL (0.2-1); TOT PROT 6.5 g/dl (6.4-8.2)
[2021-12-04] MEDS ORDERED: methylPREDNISolone NA SUCC 125 MG/2 ML VIAL IVPB ONE (19:55)
[2021-12-04] MEDS ORDERED: methylPREDNISolone NA SUCC 125 MG/2 ML VIAL ONE (20:21)
[2021-12-04] MEDS ORDERED: OSELTAMIVIR PHOSPHATE 75 MG CAPSULE PO ONE (21:23)
[2021-12-04] MEDS ORDERED: GABAPENTIN 100 MG CAPSULE ONE (21:46)
[2021-12-04] MEDS ORDERED: busPIRone HCL 5 MG TABLET ONE (21:46)
[2021-12-04] MEDS ORDERED: MONTELUKAST NA 10 MG TABLET ONE (21:46)
[2021-12-04] MEDS: busPIRone HCL 10 MG TABLET (FP) PO SCH (21:58)
[2021-12-04] MEDS: GABAPENTIN 100 MG CAPSULE PO SCH (21:58)
[2021-12-04] MEDS: AMITRIPTYLINE HCL 25 MG TABLET PO SCH (21:58)
[2021-12-04] MEDS: MONTELUKAST NA 10 MG TABLET PO SCH (21:59)
[2021-12-04] MEDS: BUDESONIDE/FORMETEROL FUMARATE 160/4.5 mcg INHALER IH SCH (21:59)
[2021-12-04] MEDS ORDERED: AMITRIPTYLINE HCL 50 MG TABLET PO SCH (22:00)
[2021-12-05] MEDS: ALBUTEROL SO4 HFA INHALER IH PRN ×2 (01:06→05:18)
[2021-12-05 02:30] VITALS: BMI 33.2
[2021-12-05] MEDS: methylPREDNISolone NA SUCC 40 MG/1 ML VIAL IVPUSH SCH ×3 (03:04→14:46)
[2021-12-05] MEDS: GABAPENTIN 100 MG CAPSULE PO SCH ×3 (05:18→21:54)
[2021-12-05] MEDS: guaiFENesin/D-METHORPHAN HB 10 ML UNIT-DOSE CUPS PO PRN (05:18)
[2021-12-05] MEDS: HEPARIN NA (PORCINE) 5,000 UNITS/ML 1ML VIAL SQ SCH ×3 (05:18→21:54)
[2021-12-05] MEDS: ALBUTEROL SO4 2.5/IPRATROPIUM 0.5 INH SOL 3 ML VIAL.NEB. NEB SCH ×4 (07:45→19:42)
[2021-12-05 09:10] LABS: BASO % 0.1 % (0-2.0); HEMATOCRIT 37.7 % (35.4-49); LYMPH % 8.8 % (8-40); MCH 29.1 pg (25.7-33.7); MCHC 34.5 g/dl (32.0-35.9); MEAN CELL VOLUME 84.2 fl (80-96); MEAN PLT VOLUME 8.4 fl (7.5-11.1); MONO % 1.2 % (3.8-10.2); NEUT % 89.9 % (42.8-82.8); PLATELET COUNT 180 10^3/uL (134-434); RBC 4.48 M/mm3 (4.00-5.60); RDW 14.2 % (11.9-15.9); WHITE BLOOD COUNT 7.2 K/mm3 (4.0-10.0)
[2021-12-05 09:33] LABS: CALCIUM 8.2 mg/dL (8.5-10.1)
[2021-12-05 09:34] LABS: ALBUMIN 3.4 g/dl (3.4-5.0); BLOOD UREA NITROGEN 35.8 mg/dL (7-18); MAGNESIUM 2.6 mg/dL (1.8-2.4)
[2021-12-05 09:37] LABS: CREATININE 2.2 mg/dL (0.55-1.3)
[2021-12-05 09:39] LABS: BILIRUBIN,TOTAL 0.5 mg/dL (0.2-1); TOT PROT 6.7 g/dl (6.4-8.2)
[2021-12-05 09:48] LABS: URINE APPEARANCE CLEAR; URINE BILIRUBIN NEGATIVE (NEGATIVE); URINE COLOR YELLOW; URINE GLUCOSE (UA) NEGATIVE (NEGATIVE); URINE KETONE NEGATIVE (NEGATIVE); URINE LEUK ESTERASE NEGATIVE (NEGATIVE); URINE NITRITE NEGATIVE (NEGATIVE); URINE PROTEIN NEGATIVE (NEGATIVE); URINE UROBILINOGEN 0.2 mg/dL (0.2-1.0)
[2021-12-05] MEDS: TOPIRAMATE 25 MG TABLET PO SCH (11:00)
[2021-12-05] MEDS: NICOTINE 7 MG/24 HOURS TOPICAL PATCH TD SCH (11:00)
[2021-12-05] MEDS: THIAMINE HCL 100 MG TABLET (FP) PO SCH (11:00)
[2021-12-05] MEDS ORDERED: INSULIN SLIDING SCALE (NOVOLOG) 1 VIAL SQ SCH (11:00)
[2021-12-05] MEDS: FOLIC ACID 1 MG TABLET (FP) PO SCH (11:00)
[2021-12-05] MEDS: MULTIVITAMINS (DAILY MVI) TABLET (FP) PO SCH (11:00)
[2021-12-05] MEDS: SERTRALINE HCL 50 MG TABLET (FP) PO SCH (11:00)
[2021-12-05] MEDS: amLODIPine BESYLATE 10 MG TABLET (FP) PO SCH (11:00)
[2021-12-05] MEDS: FAMOTIDINE 20 MG TABLET PO SCH (11:00)
[2021-12-05] MEDS: ASPIRIN 81 MG CHEWABLE TABLETS PO SCH (11:00)
[2021-12-05] MEDS ORDERED: methaDONE HCL 10 MG TABLET PO SCH (12:15)
[2021-12-05] MEDS ORDERED: methaDONE HCL 40 MG DISPERSABLE TABLET ONE (12:38)
[2021-12-05] MEDS ORDERED: methaDONE HCL 10 MG TABLET ONE (12:38)
[2021-12-05] MEDS: methaDONE 40 MG, methaDONE 10 MG PO SCH (12:43)
[2021-12-05] MEDS: busPIRone HCL 10 MG TABLET (FP) PO SCH ×2 (12:45→21:54)
[2021-12-05] MEDS: OSELTAMIVIR PHOSPHATE 30 MG CAPSULE PO SCH ×2 (12:45→21:54)
[2021-12-05] MEDS: BUDESONIDE/FORMETEROL FUMARATE 160/4.5 mcg INHALER IH SCH ×2 (12:46→21:54)
[2021-12-05] MEDS ORDERED: guaiFENesin 200 MG/10 ML 10 ML UNIT-DOSE CUPS PO ONE (16:11)
[2021-12-05] MEDS: MONTELUKAST NA 10 MG TABLET PO SCH (21:54)
[2021-12-05] MEDS: AMITRIPTYLINE HCL 25 MG TABLET PO SCH (21:54)
[2021-12-06] MEDS: methylPREDNISolone NA SUCC 40 MG/1 ML VIAL IVPUSH SCH ×2 (01:06→09:37)
[2021-12-06] MEDS: ALBUTEROL SO4 HFA INHALER IH PRN (03:50)
[2021-12-06] MEDS ORDERED: methaDONE HCL 40 MG DISPERSABLE TABLET ONE (05:50)
[2021-12-06] MEDS ORDERED: methaDONE HCL 10 MG TABLET ONE (05:50)
[2021-12-06] MEDS: guaiFENesin/D-METHORPHAN HB 10 ML UNIT-DOSE CUPS PO PRN (05:54)
[2021-12-06] MEDS: methaDONE 40 MG, methaDONE 10 MG PO SCH (05:54)
[2021-12-06] MEDS: GABAPENTIN 100 MG CAPSULE PO SCH ×3 (05:54→22:19)
[2021-12-06] MEDS: HEPARIN NA (PORCINE) 5,000 UNITS/ML 1ML VIAL SQ SCH ×3 (05:54→22:20)
[2021-12-06] MEDS ORDERED: INSULIN SLIDING SCALE (NOVOLOG) 1 VIAL SQ SCH (07:00)
[2021-12-06] MEDS: ALBUTEROL SO4 2.5/IPRATROPIUM 0.5 INH SOL 3 ML VIAL.NEB. NEB SCH ×4 (07:28→20:10)
[2021-12-06] MEDS: amLODIPine BESYLATE 10 MG TABLET (FP) PO SCH (09:38)
[2021-12-06] MEDS: busPIRone HCL 10 MG TABLET (FP) PO SCH ×2 (09:38→22:19)
[2021-12-06] MEDS: TOPIRAMATE 25 MG TABLET PO SCH (09:38)
[2021-12-06] MEDS: OSELTAMIVIR PHOSPHATE 30 MG CAPSULE PO SCH ×2 (09:39→22:19)
[2021-12-06] MEDS: SERTRALINE HCL 50 MG TABLET (FP) PO SCH (09:39)
[2021-12-06] MEDS: FOLIC ACID 1 MG TABLET (FP) PO SCH (09:39)
[2021-12-06] MEDS: ASPIRIN 81 MG CHEWABLE TABLETS PO SCH (09:40)
[2021-12-06] MEDS: FAMOTIDINE 20 MG TABLET PO SCH (09:40)
[2021-12-06] MEDS: MULTIVITAMINS (DAILY MVI) TABLET (FP) PO SCH (09:40)
[2021-12-06] MEDS: THIAMINE HCL 100 MG TABLET (FP) PO SCH (09:40)
[2021-12-06] MEDS: NICOTINE 7 MG/24 HOURS TOPICAL PATCH TD SCH (09:41)
[2021-12-06] MEDS: BUDESONIDE/FORMETEROL FUMARATE 160/4.5 mcg INHALER IH SCH ×2 (09:47→22:22)
[2021-12-06 10:51] LABS: CALCIUM 8.3 mg/dL (8.5-10.1)
[2021-12-06 10:52] LABS: BLOOD UREA NITROGEN 44.7 mg/dL (7-18); MAGNESIUM 2.5 mg/dL (1.8-2.4)
[2021-12-06 10:55] LABS: CREATININE 1.8 mg/dL (0.55-1.3); PHOSPHOROUS 3.7 mg/dL (2.5-4.9)
[2021-12-06 12:30] LABS: BASO % 0.1 % (0-2.0); HEMATOCRIT 34.3 % (35.4-49); HEMOGLOBIN 11.9 GM/dL (11.7-16.9); LYMPH % 6.9 % (8-40); MCH 29.2 pg (25.7-33.7); MCHC 34.7 g/dl (32.0-35.9); MEAN CELL VOLUME 84.1 fl (80-96); MEAN PLT VOLUME 8.1 fl (7.5-11.1); PLATELET COUNT 188 10^3/uL (134-434); RBC 4.07 M/mm3 (4.00-5.60); RDW 14.1 % (11.9-15.9); WHITE BLOOD COUNT 10.8 K/mm3 (4.0-10.0)
[2021-12-06] MEDS: MONTELUKAST NA 10 MG TABLET PO SCH (22:19)
[2021-12-06] MEDS: AMITRIPTYLINE HCL 25 MG TABLET PO SCH (22:19)
[2021-12-07] MEDS ORDERED: methaDONE HCL 40 MG DISPERSABLE TABLET ONE (06:21)
[2021-12-07] MEDS ORDERED: methaDONE HCL 10 MG TABLET ONE (06:21)
[2021-12-07] MEDS: GABAPENTIN 100 MG CAPSULE PO SCH ×3 (06:23→22:25)
[2021-12-07] MEDS: methaDONE 40 MG, methaDONE 10 MG PO SCH (06:23)
[2021-12-07] MEDS: HEPARIN NA (PORCINE) 5,000 UNITS/ML 1ML VIAL SQ SCH ×3 (06:24→22:25)
[2021-12-07] MEDS: ALBUTEROL SO4 2.5/IPRATROPIUM 0.5 INH SOL 3 ML VIAL.NEB. NEB SCH ×5 (08:13→19:37)
[2021-12-07 09:38] LABS: BLOOD UREA NITROGEN 44.5 mg/dL (7-18); CALCIUM 8.3 mg/dL (8.5-10.1)
[2021-12-07] MEDS: SERTRALINE HCL 50 MG TABLET (FP) PO SCH (09:40)
[2021-12-07] MEDS: busPIRone HCL 10 MG TABLET (FP) PO SCH ×2 (09:40→22:24)
[2021-12-07] MEDS: FOLIC ACID 1 MG TABLET (FP) PO SCH (09:41)
[2021-12-07] MEDS: OSELTAMIVIR PHOSPHATE 30 MG CAPSULE PO SCH ×2 (09:41→22:25)
[2021-12-07] MEDS: NICOTINE 7 MG/24 HOURS TOPICAL PATCH TD SCH (09:41)
[2021-12-07] MEDS: FAMOTIDINE 20 MG TABLET PO SCH (09:41)
[2021-12-07] MEDS: amLODIPine BESYLATE 10 MG TABLET (FP) PO SCH (09:41)
[2021-12-07] MEDS: THIAMINE HCL 100 MG TABLET (FP) PO SCH (09:41)
[2021-12-07] MEDS: MULTIVITAMINS (DAILY MVI) TABLET (FP) PO SCH (09:41)
[2021-12-07] MEDS: ASPIRIN 81 MG CHEWABLE TABLETS PO SCH (09:41)
[2021-12-07 09:42] LABS: CREATININE 1.6 mg/dL (0.55-1.3)
[2021-12-07] MEDS: TOPIRAMATE 25 MG TABLET PO SCH (09:42)
[2021-12-07] MEDS: BUDESONIDE/FORMETEROL FUMARATE 160/4.5 mcg INHALER IH SCH ×2 (09:43→22:28)
[2021-12-07 11:17] LABS: BASO % 0.2 % (0-2.0); HEMATOCRIT 34.2 % (35.4-49); HEMOGLOBIN 11.7 GM/dL (11.7-16.9); LYMPH % 9.1 % (8-40); MCHC 34.2 g/dl (32.0-35.9); MEAN CELL VOLUME 84.9 fl (80-96); MEAN PLT VOLUME 8.1 fl (7.5-11.1); MONO % 5.3 % (3.8-10.2); NEUT % 85.4 % (42.8-82.8); PLATELET COUNT 193 10^3/uL (134-434); RBC 4.02 M/mm3 (4.00-5.60); RDW 14.1 % (11.9-15.9); WHITE BLOOD COUNT 10.6 K/mm3 (4.0-10.0)
[2021-12-07] MEDS: POLYETHYLENE GLYCOL (HEALTHYLAX) 3350 17 GM PACKET PO SCH (12:23)
[2021-12-07] MEDS ORDERED: CEFTRIAXONE 1 GM in DEXTROSE 5%-WATER - 50 ML IVPB SCH (16:15)
[2021-12-07] MEDS ORDERED: cefTRIAXone SODIUM 1 GM VIAL ONE (16:28)
[2021-12-07] MEDS ORDERED: DEXTROSE 5%-WATER - 50 ML IVPB ONE (16:28)
[2021-12-07] MEDS: LISINOPRIL 5 MG TABLET PO SCH (16:56)
[2021-12-07] MEDS: CEFTRIAXONE 1 GM in DEXTROSE 5%-WATER - 50 ML IVPB SCH (17:08)
[2021-12-07] MEDS: methylPREDNISolone NA SUCC 40 MG/1 ML VIAL IVPUSH SCH (17:56)
[2021-12-07] MEDS: AMITRIPTYLINE HCL 25 MG TABLET PO SCH (22:25)
[2021-12-07] MEDS: MONTELUKAST NA 10 MG TABLET PO SCH (22:25)
[2021-12-08] MEDS: methylPREDNISolone NA SUCC 40 MG/1 ML VIAL IVPUSH SCH ×3 (01:38→18:00)
[2021-12-08] MEDS: ALBUTEROL SO4 HFA INHALER IH PRN (01:45)
[2021-12-08] MEDS ORDERED: methaDONE HCL 10 MG TABLET ONE (06:11)
[2021-12-08] MEDS ORDERED: methaDONE HCL 40 MG DISPERSABLE TABLET ONE (06:11)
[2021-12-08] MEDS: methaDONE 40 MG, methaDONE 10 MG PO SCH (06:14)
[2021-12-08] MEDS: GABAPENTIN 100 MG CAPSULE PO SCH ×3 (06:15→21:41)
[2021-12-08] MEDS: HEPARIN NA (PORCINE) 5,000 UNITS/ML 1ML VIAL SQ SCH ×3 (06:15→21:39)
[2021-12-08] MEDS: ALBUTEROL SO4 2.5/IPRATROPIUM 0.5 INH SOL 3 ML VIAL.NEB. NEB SCH ×4 (08:05→20:17)
[2021-12-08] MEDS ORDERED: DEXTROSE 5%-WATER - 50 ML IVPB ONE (09:29)
[2021-12-08] MEDS ORDERED: cefTRIAXone SODIUM 1 GM VIAL ONE (09:29)
[2021-12-08] MEDS: amLODIPine BESYLATE 10 MG TABLET (FP) PO SCH (09:48)
[2021-12-08] MEDS: ASPIRIN 81 MG CHEWABLE TABLETS PO SCH (09:49)
[2021-12-08] MEDS: SERTRALINE HCL 50 MG TABLET (FP) PO SCH (09:49)
[2021-12-08] MEDS: POLYETHYLENE GLYCOL (HEALTHYLAX) 3350 17 GM PACKET PO SCH (09:49)
[2021-12-08] MEDS: NICOTINE 7 MG/24 HOURS TOPICAL PATCH TD SCH (09:49)
[2021-12-08] MEDS: OSELTAMIVIR PHOSPHATE 30 MG CAPSULE PO SCH ×2 (09:49→21:40)
[2021-12-08] MEDS: MULTIVITAMINS (DAILY MVI) TABLET (FP) PO SCH (09:49)
[2021-12-08] MEDS: THIAMINE HCL 100 MG TABLET (FP) PO SCH (09:49)
[2021-12-08] MEDS: FOLIC ACID 1 MG TABLET (FP) PO SCH (09:49)
[2021-12-08] MEDS: LISINOPRIL 5 MG TABLET PO SCH (09:49)
[2021-12-08] MEDS: busPIRone HCL 10 MG TABLET (FP) PO SCH ×2 (09:49→21:38)
[2021-12-08] MEDS: FAMOTIDINE 20 MG TABLET PO SCH (09:49)
[2021-12-08] MEDS: TOPIRAMATE 25 MG TABLET PO SCH (09:49)
[2021-12-08] MEDS: CEFTRIAXONE 1 GM in DEXTROSE 5%-WATER - 50 ML IVPB SCH (09:50)
[2021-12-08] MEDS: BUDESONIDE/FORMETEROL FUMARATE 160/4.5 mcg INHALER IH SCH ×2 (09:51→21:40)
[2021-12-08 09:57] LABS: BASO % 0.3 % (0-2.0); HEMATOCRIT 35.2 % (35.4-49); HEMOGLOBIN 12.4 GM/dL (11.7-16.9); LYMPH % 11.3 % (8-40); MCH 29.5 pg (25.7-33.7); MCHC 35.1 g/dl (32.0-35.9); MEAN CELL VOLUME 83.9 fl (80-96); MEAN PLT VOLUME 8.2 fl (7.5-11.1); MONO % 2.8 % (3.8-10.2); NEUT % 85.6 % (42.8-82.8); PLATELET COUNT 204 10^3/uL (134-434); WHITE BLOOD COUNT 8.4 K/mm3 (4.0-10.0)
[2021-12-08 10:16] LABS: CHLORIDE 101 mmol/L (98-107); SODIUM 136 mmol/L (136-145)
[2021-12-08 10:19] LABS: CALCIUM 8.7 mg/dL (8.5-10.1)
[2021-12-08 10:20] LABS: ANION GAP 10 MMOL/L (8-16); BLOOD UREA NITROGEN 43.5 mg/dL (7-18); CO2 25 mmol/L (21-32)
[2021-12-08 10:23] LABS: CREATININE 1.8 mg/dL (0.55-1.3)
[2021-12-08 10:33] LABS: GLUCOSE,RANDOM 450 mg/dL (74-106)
[2021-12-08 11:13] LABS: HIV INTERPRETATION NEGATIVE (NEGATIVE)
[2021-12-08 11:50] LABS: ANISOCYTOSIS 2+; MACROCYTOSIS 0; TEAR DROP CELLS 2+
[2021-12-08] MEDS: INSULIN SLIDING SCALE (NOVOLOG) 1 VIAL SQ SCH ×2 (16:47→21:47)
[2021-12-08] MEDS ORDERED: INSULIN (NOVOLOG) ASPART 100 UNITS/ML 10ML VIAL ONE (20:53)
[2021-12-08] MEDS: AMITRIPTYLINE HCL 25 MG TABLET PO SCH (21:38)
[2021-12-08] MEDS: MONTELUKAST NA 10 MG TABLET PO SCH (21:41)
[2021-12-08] MEDS ORDERED: INSULIN (NOVOLOG) ASPART 100 UNITS/ML 10ML VIAL SQ ONE (23:43)
[2021-12-09 01:21] LABS: CHLORIDE 100 mmol/L (98-107); SODIUM 135 mmol/L (136-145)
[2021-12-09 01:23] LABS: ANION GAP 8 MMOL/L (8-16); CALCIUM 8.9 mg/dL (8.5-10.1); CO2 27 mmol/L (21-32)
[2021-12-09 01:24] LABS: BLOOD UREA NITROGEN 41.6 mg/dL (7-18)
[2021-12-09 01:27] LABS: CREATININE 1.9 mg/dL (0.55-1.3)
[2021-12-09 01:38] LABS: GLUCOSE,RANDOM 413 mg/dL (74-106)
[2021-12-09] MEDS: methylPREDNISolone NA SUCC 40 MG/1 ML VIAL IVPUSH SCH ×3 (01:52→17:59)
[2021-12-09] MEDS ORDERED: methaDONE HCL 40 MG DISPERSABLE TABLET ONE (05:58)
[2021-12-09] MEDS ORDERED: methaDONE HCL 10 MG TABLET ONE (05:58)
[2021-12-09] MEDS: methaDONE 40 MG, methaDONE 10 MG PO SCH (06:04)
[2021-12-09] MEDS: GABAPENTIN 100 MG CAPSULE PO SCH ×3 (06:04→21:44)
[2021-12-09] MEDS: HEPARIN NA (PORCINE) 5,000 UNITS/ML 1ML VIAL SQ SCH ×3 (06:04→21:45)
[2021-12-09] MEDS: INSULIN SLIDING SCALE (NOVOLOG) 1 VIAL SQ SCH ×4 (06:10→21:47)
[2021-12-09] MEDS: ALBUTEROL SO4 2.5/IPRATROPIUM 0.5 INH SOL 3 ML VIAL.NEB. NEB SCH ×4 (08:31→20:23)
[2021-12-09] MEDS ORDERED: cefTRIAXone SODIUM 1 GM VIAL ONE (09:33)
[2021-12-09] MEDS ORDERED: DEXTROSE 5%-WATER - 50 ML IVPB ONE (09:33)
[2021-12-09] MEDS: POLYETHYLENE GLYCOL (HEALTHYLAX) 3350 17 GM PACKET PO SCH (09:46)
[2021-12-09] MEDS: amLODIPine BESYLATE 10 MG TABLET (FP) PO SCH (09:46)
[2021-12-09] MEDS: THIAMINE HCL 100 MG TABLET (FP) PO SCH (09:46)
[2021-12-09] MEDS: CEFTRIAXONE 1 GM in DEXTROSE 5%-WATER - 50 ML IVPB SCH (09:47)
[2021-12-09] MEDS: ASPIRIN 81 MG CHEWABLE TABLETS PO SCH (09:47)
[2021-12-09] MEDS: FAMOTIDINE 20 MG TABLET PO SCH (09:47)
[2021-12-09] MEDS: MULTIVITAMINS (DAILY MVI) TABLET (FP) PO SCH (09:47)
[2021-12-09] MEDS: FOLIC ACID 1 MG TABLET (FP) PO SCH (09:47)
[2021-12-09] MEDS: busPIRone HCL 10 MG TABLET (FP) PO SCH ×2 (09:47→21:45)
[2021-12-09] MEDS: SERTRALINE HCL 50 MG TABLET (FP) PO SCH (09:47)
[2021-12-09] MEDS: TOPIRAMATE 25 MG TABLET PO SCH (09:47)
[2021-12-09] MEDS: LISINOPRIL 5 MG TABLET PO SCH (09:47)
[2021-12-09] MEDS: NICOTINE 7 MG/24 HOURS TOPICAL PATCH TD SCH (09:48)
[2021-12-09] MEDS: BUDESONIDE/FORMETEROL FUMARATE 160/4.5 mcg INHALER IH SCH ×2 (09:48→21:47)
[2021-12-09 10:31] LABS: HEMATOCRIT 35.5 % (35.4-49); HEMOGLOBIN 12.4 GM/dL (11.7-16.9); MCH 28.8 pg (25.7-33.7); MCHC 34.8 g/dl (32.0-35.9); MEAN CELL VOLUME 82.8 fl (80-96); MEAN PLT VOLUME 7.9 fl (7.5-11.1); PLATELET COUNT 230 10^3/uL (134-434); RBC 4.29 M/mm3 (4.00-5.60); RDW 14.2 % (11.9-15.9); WHITE BLOOD COUNT 11.9 K/mm3 (4.0-10.0)
[2021-12-09 10:44] LABS: CALCIUM 8.9 mg/dL (8.5-10.1)
[2021-12-09 10:45] LABS: BLOOD UREA NITROGEN 42.7 mg/dL (7-18)
[2021-12-09 10:48] LABS: CREATININE 1.7 mg/dL (0.55-1.3)
[2021-12-09 11:33] LABS: ANISOCYTOSIS 3+; MACROCYTOSIS 0
[2021-12-09] MEDS ORDERED: INSULIN (NOVOLOG) ASPART 100 UNITS/ML 10ML VIAL ONE (17:52)
[2021-12-09] MEDS: BENZOCAINE/MENTH/CETYLPYRD CL 1 EACH LOZENGE MM PRN (18:00)
[2021-12-09] MEDS: AMITRIPTYLINE HCL 25 MG TABLET PO SCH (21:44)
[2021-12-09] MEDS: MONTELUKAST NA 10 MG TABLET PO SCH (21:44)
[2021-12-09] MEDS: INSULIN (LEVEMIR) 100 UNITS/ML UNITS SQ SCH (21:46)
[2021-12-10] MEDS: methylPREDNISolone NA SUCC 40 MG/1 ML VIAL IVPUSH SCH ×2 (01:52→10:52)
[2021-12-10] MEDS ORDERED: methaDONE HCL 10 MG TABLET ONE (05:08)
[2021-12-10] MEDS ORDERED: methaDONE HCL 40 MG DISPERSABLE TABLET ONE (05:08)
[2021-12-10] MEDS: methaDONE 40 MG, methaDONE 10 MG PO SCH (05:54)
[2021-12-10] MEDS: HEPARIN NA (PORCINE) 5,000 UNITS/ML 1ML VIAL SQ SCH (05:55)
[2021-12-10] MEDS: GABAPENTIN 100 MG CAPSULE PO SCH (05:56)
[2021-12-10] MEDS: INSULIN SLIDING SCALE (NOVOLOG) 1 VIAL SQ SCH ×2 (06:53→10:54)
[2021-12-10 08:56] LABS: HEMATOCRIT 37.6 % (35.4-49); HEMOGLOBIN 12.8 GM/dL (11.7-16.9); MCH 28.3 pg (25.7-33.7); MCHC 34.1 g/dl (32.0-35.9); MEAN CELL VOLUME 83.2 fl (80-96); MEAN PLT VOLUME 8.1 fl (7.5-11.1); PLATELET COUNT 240 10^3/uL (134-434); RBC 4.51 M/mm3 (4.00-5.60); RDW 14.1 % (11.9-15.9); WHITE BLOOD COUNT 14.7 K/mm3 (4.0-10.0)
[2021-12-10 09:33] LABS: CALCIUM 8.9 mg/dL (8.5-10.1)
[2021-12-10 09:34] LABS: BLOOD UREA NITROGEN 48.3 mg/dL (7-18)
[2021-12-10] MEDS: ALBUTEROL SO4 HFA INHALER IH PRN (09:36)
[2021-12-10 09:43] LABS: CREATININE 1.8 mg/dL (0.55-1.3)
[2021-12-10] MEDS ORDERED: CEFUROXIME AXETIL 500 MG TABLET PO SCH (10:00)
[2021-12-10 10:33] LABS: ANISOCYTOSIS 1+; MACROCYTOSIS 1+; OVALOCYTE 1+; TEAR DROP CELLS 1+
[2021-12-10] MEDS: ASPIRIN 81 MG CHEWABLE TABLETS PO SCH (10:48)
[2021-12-10] MEDS: THIAMINE HCL 100 MG TABLET (FP) PO SCH (10:49)
[2021-12-10] MEDS: busPIRone HCL 10 MG TABLET (FP) PO SCH (10:49)
[2021-12-10] MEDS: FOLIC ACID 1 MG TABLET (FP) PO SCH (10:49)
[2021-12-10] MEDS: POLYETHYLENE GLYCOL (HEALTHYLAX) 3350 17 GM PACKET PO SCH (10:50)
[2021-12-10] MEDS: INSULIN (LEVEMIR) 100 UNITS/ML UNITS SQ SCH (10:51)
[2021-12-10] MEDS: BUDESONIDE/FORMETEROL FUMARATE 160/4.5 mcg INHALER IH SCH (10:52)
[2021-12-10] MEDS: NICOTINE 7 MG/24 HOURS TOPICAL PATCH TD SCH (10:52)
[2021-12-10] MEDS: LISINOPRIL 5 MG TABLET PO SCH (10:52)
[2021-12-10] MEDS: amLODIPine BESYLATE 10 MG TABLET (FP) PO SCH (10:52)
[2021-12-10] MEDS: SERTRALINE HCL 50 MG TABLET (FP) PO SCH (10:53)
[2021-12-10] MEDS: MULTIVITAMINS (DAILY MVI) TABLET (FP) PO SCH (10:53)
[2021-12-10] MEDS: TOPIRAMATE 25 MG TABLET PO SCH (10:53)
[2021-12-10] MEDS: guaiFENesin/D-METHORPHAN HB 10 ML UNIT-DOSE CUPS PO PRN (10:54)
[2021-12-10] MEDS: BENZOCAINE/MENTH/CETYLPYRD CL 1 EACH LOZENGE MM PRN (10:54)
[2021-12-10] MEDS: ALBUTEROL SO4 2.5/IPRATROPIUM 0.5 INH SOL 3 ML VIAL.NEB. NEB SCH ×2 (11:15→15:27)
[2021-12-10 14:34] VITALS: BP 147/76; PULSE 85; TEMP 98.7
== END 2021-12-10 15:39 | disposition other institution (70) | DRG 139 ==
LOC: JER 16:33 → JERBED 19:54 → J6S 12-05 00:46
PROVIDERS: ADMIT Hospitalist; ATTEND Internal Medicine
DX: J10.08 Influenza due to other identified influenza virus with other specified pneumonia (principal); J44.1 Chronic obstructive pulmonary disease with (acute) exacerbation; F13.20 Sedative, hypnotic or anxiolytic dependence, uncomplicated; E11.22 Type 2 diabetes mellitus with diabetic chronic kidney disease; J45.901 Unspecified asthma with (acute) exacerbation; F11.20 Opioid dependence, uncomplicated; F41.9 Anxiety disorder, unspecified; M10.9 Gout, unspecified; K21.9 Gastro-esophageal reflux disease without esophagitis; I12.9 Hypertensive chronic kidney disease with stage 1 through stage 4 chronic kidney disease, or unspecified chronic kidney disease; N18.9 Chronic kidney disease, unspecified; F10.20 Alcohol dependence, uncomplicated; N17.9 Acute kidney failure, unspecified; F17.210 Nicotine dependence, cigarettes, uncomplicated; F20.9 Schizophrenia, unspecified; Z86.74 Personal history of sudden cardiac arrest; F32.9 Major depressive disorder, single episode, unspecified; Q61.3 Polycystic kidney, unspecified; F14.20 Cocaine dependence, uncomplicated
CPT/HCPCS: 0241U-QW; 36415; 71045-TC-FY; 71046-TC-FY; 76775-TC; 80048; 80053; 81003; 82962; 83036; 83605; 83735; 84100; 85025; 87040; 87070; 87186; 87205; 87389; 87804; 93005; 93010; 94640; 99285-25; J1644

== ENCOUNTER 2021-12-10 14:24 | Inpatient (IN) | payer OTHER ==
[2021-12-10] MEDS ORDERED: MAGNESIUM HYDROX 2400MG/30ML ORAL SUSPENSION 30 ML CUP PO PRN (17:31)
[2021-12-10] MEDS ORDERED: guaiFENesin 200 MG/10 ML 10 ML UNIT-DOSE CUPS PO PRN (17:31)
[2021-12-10] MEDS ORDERED: ACETAMINOPHEN 325 MG TABLET (FP) PO PRN (17:31)
[2021-12-10] MEDS ORDERED: MAG HYDROX/AL HYDROX/SIMETH 30 ML UNIT-DOSE CUP PO PRN (17:31)
[2021-12-10] MEDS ORDERED: P-EPHED 60MG/TRIPROLIDI 2.5MG TABLET PO PRN (17:31)
[2021-12-10] MEDS ORDERED: MAGNESIUM CITRATE 300 ML BOTTLE PO PRN (17:31)
[2021-12-10] MEDS ORDERED: LOPERAMIDE HCL 2 MG CAPSULE PO PRN (17:31)
[2021-12-10] MEDS ORDERED: hydrOXYzine PAMOATE 25 MG CAPSULE (FP) PO SCH (18:00)
[2021-12-10] MEDS ORDERED: PATIENT'S OWN MEDICATION (NON-FORMULARY) (Sertraline Hcl [Zoloft] 100 MG Tablet) PO SCH (22:00)
[2021-12-10] MEDS ORDERED: AMITRIPTYLINE HCL 50 MG TABLET PO SCH (22:00)
[2021-12-10 23:46] VITALS: BMI 33.6
[2021-12-11] MEDS: GABAPENTIN 100 MG CAPSULE PO SCH ×4 (04:02→21:13)
[2021-12-11] MEDS: MELATONIN 5 MG TABLETS PO SCH ×2 (04:02→21:13)
[2021-12-11] MEDS: CEFUROXIME AXETIL 500 MG TABLET PO SCH ×3 (04:02→21:13)
[2021-12-11] MEDS: INSULIN SLIDING SCALE (NOVOLOG) 1 VIAL SQ SCH ×5 (04:03→21:12)
[2021-12-11] MEDS: MONTELUKAST NA 10 MG TABLET PO SCH ×2 (04:03→21:14)
[2021-12-11] MEDS: THIAMINE HCL 100 MG TABLET (FP) PO SCH ×2 (04:03→21:14)
[2021-12-11] MEDS: OSELTAMIVIR PHOSPHATE 30 MG CAPSULE PO SCH ×3 (04:03→21:13)
[2021-12-11] MEDS ORDERED: methaDONE HCL 10 MG TABLET PO SCH (06:00)
[2021-12-11] MEDS: methaDONE HCL 10 MG TABLET PO SCH (06:22)
[2021-12-11] MEDS ORDERED: INSULIN (NOVOLOG) ASPART 100 UNITS/ML 10ML VIAL ONE ×3 (06:28→16:57)
[2021-12-11] MEDS ORDERED: PATIENT'S OWN MEDICATION (NON-FORMULARY) (Lisinopril [Lisinopril] 30 MG Tablet) PO SCH (10:00)
[2021-12-11] MEDS ORDERED: predniSONE 10 MG TABLET (UD) PO SCH (10:00)
[2021-12-11] MEDS ORDERED: PATIENT'S OWN MEDICATION (NON-FORMULARY) (Colchicine [Colchicine] 0.6 MG Tablet) PO SCH (10:00)
[2021-12-11] MEDS ORDERED: COLCHICINE 0.6 MG CAP PO SCH (10:00)
[2021-12-11] MEDS ORDERED: LISINOPRIL 10 MG TABLET PO SCH (10:00)
[2021-12-11] MEDS: busPIRone HCL 10 MG TABLET (FP) PO SCH ×2 (10:17→21:14)
[2021-12-11] MEDS: predniSONE 20 MG TABLET (UD) PO SCH (10:17)
[2021-12-11] MEDS: amLODIPine BESYLATE 10 MG TABLET (FP) PO SCH (10:17)
[2021-12-11] MEDS: TOPIRAMATE 25 MG TABLET PO SCH (10:17)
[2021-12-11] MEDS: PRENATAL VITAMINS W/ FOLIC ACID TABLET (FP) PO SCH (10:17)
[2021-12-11] MEDS: ALBUTEROL SO4 HFA INHALER IH PRN (10:25)
[2021-12-11] MEDS: SERTRALINE HCL 50 MG TABLET (FP) PO SCH (10:27)
[2021-12-11] MEDS: BUDESONIDE/FORMETEROL FUMARATE 160/4.5 mcg INHALER IH SCH ×2 (10:39→21:12)
[2021-12-11 11:40] LABS: HEMATOCRIT 38.6 % (35.4-49); HEMOGLOBIN 13.7 GM/dL (11.7-16.9); MCHC 35.5 g/dl (32.0-35.9); MEAN CELL VOLUME 84.7 fl (80-96); MEAN PLT VOLUME 8.4 fl (7.5-11.1); PLATELET COUNT 284 10^3/uL (134-434); RBC 4.55 M/mm3 (4.00-5.60); RDW 14.1 % (11.9-15.9); WHITE BLOOD COUNT 15.4 K/mm3 (4.0-10.0)
[2021-12-11 12:07] LABS: CHLORIDE 98 mmol/L (98-107); SODIUM 135 mmol/L (136-145)
[2021-12-11 12:23] LABS: CALCIUM 8.5 mg/dL (8.5-10.1)
[2021-12-11 12:24] LABS: ALBUMIN 3.4 g/dl (3.4-5.0); ANION GAP 12 MMOL/L (8-16); CO2 25 mmol/L (21-32)
[2021-12-11 12:28] LABS: BILIRUBIN,TOTAL 0.5 mg/dL (0.2-1)
[2021-12-11 13:01] LABS: ALK PHOS 205 U/L (45-117); BLOOD UREA NITROGEN 48.6 mg/dL (7-18); GLUCOSE,RANDOM 600 mg/dL (74-106); SGOT/AST 24 U/L (15-37); SGPT/ALT 31 U/L (13-61); TOT PROT 6.7 g/dl (6.4-8.2)
[2021-12-11] MEDS: NICOTINE 10 MG CARTRIDGE (INHALER) IH PRN ×2 (15:27→21:16)
[2021-12-11] MEDS: AMITRIPTYLINE HCL 25 MG TABLET PO SCH (21:14)
[2021-12-12] MEDS: INSULIN SLIDING SCALE (NOVOLOG) 1 VIAL SQ SCH ×4 (06:20→22:26)
[2021-12-12] MEDS: methaDONE HCL 10 MG TABLET PO SCH (06:20)
[2021-12-12] MEDS ORDERED: INSULIN (NOVOLOG) ASPART 100 UNITS/ML 10ML VIAL ONE ×4 (06:20→22:25)
[2021-12-12] MEDS: GABAPENTIN 100 MG CAPSULE PO SCH ×3 (06:21→21:28)
[2021-12-12] MEDS: ALBUTEROL SO4 HFA INHALER IH PRN ×3 (09:17→21:29)
[2021-12-12] MEDS: CEFUROXIME AXETIL 500 MG TABLET PO SCH ×2 (09:19→21:28)
[2021-12-12] MEDS: SERTRALINE HCL 50 MG TABLET (FP) PO SCH (09:19)
[2021-12-12] MEDS: ASPIRIN 81 MG CHEWABLE TABLETS PO SCH (09:19)
[2021-12-12] MEDS: busPIRone HCL 10 MG TABLET (FP) PO SCH ×2 (09:19→21:58)
[2021-12-12] MEDS: amLODIPine BESYLATE 10 MG TABLET (FP) PO SCH (09:19)
[2021-12-12] MEDS: predniSONE 20 MG TABLET (UD) PO SCH (09:20)
[2021-12-12] MEDS: TOPIRAMATE 25 MG TABLET PO SCH (09:20)
[2021-12-12] MEDS: OSELTAMIVIR PHOSPHATE 30 MG CAPSULE PO SCH ×2 (09:21→21:28)
[2021-12-12] MEDS: PRENATAL VITAMINS W/ FOLIC ACID TABLET (FP) PO SCH (09:22)
[2021-12-12] MEDS: NICOTINE 10 MG CARTRIDGE (INHALER) IH PRN (09:23)
[2021-12-12] MEDS: BUDESONIDE/FORMETEROL FUMARATE 160/4.5 mcg INHALER IH SCH ×2 (09:23→21:29)
[2021-12-12] MEDS: MELATONIN 5 MG TABLETS PO SCH (21:27)
[2021-12-12] MEDS: AMITRIPTYLINE HCL 25 MG TABLET PO SCH (21:28)
[2021-12-12] MEDS: THIAMINE HCL 100 MG TABLET (FP) PO SCH (21:29)
[2021-12-12] MEDS: MONTELUKAST NA 10 MG TABLET PO SCH (21:58)
[2021-12-13] MEDS: methaDONE HCL 10 MG TABLET PO SCH (06:13)
[2021-12-13] MEDS ORDERED: INSULIN (NOVOLOG) ASPART 100 UNITS/ML 10ML VIAL ONE ×4 (06:13→22:42)
[2021-12-13] MEDS: GABAPENTIN 100 MG CAPSULE PO SCH ×3 (06:13→21:28)
[2021-12-13] MEDS: INSULIN SLIDING SCALE (NOVOLOG) 1 VIAL SQ SCH ×4 (06:14→22:04)
[2021-12-13] MEDS: ALBUTEROL SO4 HFA INHALER IH PRN (10:05)
[2021-12-13] MEDS: BUDESONIDE/FORMETEROL FUMARATE 160/4.5 mcg INHALER IH SCH ×2 (10:05→21:28)
[2021-12-13] MEDS: predniSONE 20 MG TABLET (UD) PO SCH (10:06)
[2021-12-13] MEDS: ASPIRIN 81 MG CHEWABLE TABLETS PO SCH (10:06)
[2021-12-13] MEDS: SERTRALINE HCL 50 MG TABLET (FP) PO SCH (10:06)
[2021-12-13] MEDS: busPIRone HCL 10 MG TABLET (FP) PO SCH ×2 (10:06→21:28)
[2021-12-13] MEDS: PRENATAL VITAMINS W/ FOLIC ACID TABLET (FP) PO SCH (10:07)
[2021-12-13] MEDS: TOPIRAMATE 25 MG TABLET PO SCH (10:07)
[2021-12-13] MEDS: FAMOTIDINE 20 MG TABLET PO SCH ×2 (10:07→21:28)
[2021-12-13] MEDS: amLODIPine BESYLATE 10 MG TABLET (FP) PO SCH (10:07)
[2021-12-13] MEDS: NICOTINE 10 MG CARTRIDGE (INHALER) IH PRN ×2 (10:08→21:31)
[2021-12-13] MEDS: AMITRIPTYLINE HCL 25 MG TABLET PO SCH (21:28)
[2021-12-13] MEDS: MELATONIN 5 MG TABLETS PO SCH (21:28)
[2021-12-13] MEDS: THIAMINE HCL 100 MG TABLET (FP) PO SCH (21:28)
[2021-12-13] MEDS: MONTELUKAST NA 10 MG TABLET PO SCH (21:30)
[2021-12-14] MEDS ORDERED: INSULIN (NOVOLOG) ASPART 100 UNITS/ML 10ML VIAL ONE ×4 (06:13→21:42)
[2021-12-14] MEDS: INSULIN SLIDING SCALE (NOVOLOG) 1 VIAL SQ SCH ×4 (06:13→21:42)
[2021-12-14] MEDS: methaDONE HCL 10 MG TABLET PO SCH (06:14)
[2021-12-14] MEDS: GABAPENTIN 100 MG CAPSULE PO SCH ×3 (06:14→21:38)
[2021-12-14] MEDS: NICOTINE 10 MG CARTRIDGE (INHALER) IH PRN ×2 (06:49→21:44)
[2021-12-14] MEDS: ASPIRIN 81 MG CHEWABLE TABLETS PO SCH (10:08)
[2021-12-14] MEDS: BUDESONIDE/FORMETEROL FUMARATE 160/4.5 mcg INHALER IH SCH ×2 (10:08→21:40)
[2021-12-14] MEDS: TOPIRAMATE 25 MG TABLET PO SCH (10:09)
[2021-12-14] MEDS: predniSONE 20 MG TABLET (UD) PO SCH (10:09)
[2021-12-14] MEDS: SERTRALINE HCL 50 MG TABLET (FP) PO SCH (10:09)
[2021-12-14] MEDS: amLODIPine BESYLATE 10 MG TABLET (FP) PO SCH (10:09)
[2021-12-14] MEDS: FAMOTIDINE 20 MG TABLET PO SCH ×2 (10:09→21:38)
[2021-12-14] MEDS: busPIRone HCL 10 MG TABLET (FP) PO SCH ×2 (10:09→21:38)
[2021-12-14] MEDS: PRENATAL VITAMINS W/ FOLIC ACID TABLET (FP) PO SCH (10:10)
[2021-12-14] MEDS: MELATONIN 5 MG TABLETS PO SCH (21:37)
[2021-12-14] MEDS: AMITRIPTYLINE HCL 25 MG TABLET PO SCH (21:38)
[2021-12-14] MEDS: MONTELUKAST NA 10 MG TABLET PO SCH (21:38)
[2021-12-14] MEDS: THIAMINE HCL 100 MG TABLET (FP) PO SCH (22:11)
[2021-12-15] MEDS ORDERED: INSULIN (NOVOLOG) ASPART 100 UNITS/ML 10ML VIAL ONE ×4 (06:05→21:10)
[2021-12-15] MEDS: INSULIN SLIDING SCALE (NOVOLOG) 1 VIAL SQ SCH ×4 (06:05→21:11)
[2021-12-15] MEDS: GABAPENTIN 100 MG CAPSULE PO SCH ×3 (06:06→21:12)
[2021-12-15] MEDS: methaDONE HCL 10 MG TABLET PO SCH (06:06)
[2021-12-15] MEDS: NICOTINE 10 MG CARTRIDGE (INHALER) IH PRN ×2 (09:28→23:35)
[2021-12-15] MEDS: ALBUTEROL SO4 HFA INHALER IH PRN (09:28)
[2021-12-15] MEDS: TOPIRAMATE 25 MG TABLET PO SCH (09:28)
[2021-12-15] MEDS: BUDESONIDE/FORMETEROL FUMARATE 160/4.5 mcg INHALER IH SCH ×2 (09:28→21:11)
[2021-12-15] MEDS: amLODIPine BESYLATE 10 MG TABLET (FP) PO SCH (09:28)
[2021-12-15] MEDS: SERTRALINE HCL 50 MG TABLET (FP) PO SCH (09:29)
[2021-12-15] MEDS: busPIRone HCL 10 MG TABLET (FP) PO SCH ×2 (09:29→21:12)
[2021-12-15] MEDS: FAMOTIDINE 20 MG TABLET PO SCH ×2 (09:29→21:12)
[2021-12-15] MEDS: ASPIRIN 81 MG CHEWABLE TABLETS PO SCH (09:29)
[2021-12-15] MEDS: PRENATAL VITAMINS W/ FOLIC ACID TABLET (FP) PO SCH (09:38)
[2021-12-15] MEDS: predniSONE 20 MG TABLET (UD) PO SCH (09:38)
[2021-12-15] MEDS: MELATONIN 5 MG TABLETS PO SCH (21:11)
[2021-12-15] MEDS: THIAMINE HCL 100 MG TABLET (FP) PO SCH (21:12)
[2021-12-15] MEDS: MONTELUKAST NA 10 MG TABLET PO SCH (21:12)
[2021-12-15] MEDS: AMITRIPTYLINE HCL 25 MG TABLET PO SCH (21:12)
[2021-12-16] MEDS ORDERED: INSULIN (NOVOLOG) ASPART 100 UNITS/ML 10ML VIAL ONE ×4 (06:00→22:11)
[2021-12-16] MEDS: GABAPENTIN 100 MG CAPSULE PO SCH ×3 (06:01→21:12)
[2021-12-16] MEDS: methaDONE HCL 10 MG TABLET PO SCH (06:01)
[2021-12-16] MEDS: INSULIN SLIDING SCALE (NOVOLOG) 1 VIAL SQ SCH ×4 (06:02→21:14)
[2021-12-16] MEDS: predniSONE 20 MG TABLET (UD) PO SCH (09:12)
[2021-12-16] MEDS: amLODIPine BESYLATE 10 MG TABLET (FP) PO SCH (09:12)
[2021-12-16] MEDS: ASPIRIN 81 MG CHEWABLE TABLETS PO SCH (09:12)
[2021-12-16] MEDS: busPIRone HCL 10 MG TABLET (FP) PO SCH ×2 (09:12→21:12)
[2021-12-16] MEDS: FAMOTIDINE 20 MG TABLET PO SCH ×2 (09:13→21:12)
[2021-12-16] MEDS: PRENATAL VITAMINS W/ FOLIC ACID TABLET (FP) PO SCH (09:13)
[2021-12-16] MEDS: TOPIRAMATE 25 MG TABLET PO SCH (09:14)
[2021-12-16] MEDS: BUDESONIDE/FORMETEROL FUMARATE 160/4.5 mcg INHALER IH SCH ×2 (09:14→21:15)
[2021-12-16] MEDS: SERTRALINE HCL 50 MG TABLET (FP) PO SCH (09:15)
[2021-12-16] MEDS: NICOTINE 10 MG CARTRIDGE (INHALER) IH PRN (09:16)
[2021-12-16] MEDS: THIAMINE HCL 100 MG TABLET (FP) PO SCH (21:12)
[2021-12-16] MEDS: AMITRIPTYLINE HCL 25 MG TABLET PO SCH (21:12)
[2021-12-16] MEDS: MELATONIN 5 MG TABLETS PO SCH (21:12)
[2021-12-16] MEDS: MONTELUKAST NA 10 MG TABLET PO SCH (21:15)
[2021-12-17] MEDS ORDERED: INSULIN (NOVOLOG) ASPART 100 UNITS/ML 10ML VIAL ONE ×5 (06:08→22:00)
[2021-12-17] MEDS: methaDONE HCL 10 MG TABLET PO SCH (06:09)
[2021-12-17] MEDS: GABAPENTIN 100 MG CAPSULE PO SCH ×3 (06:09→21:46)
[2021-12-17] MEDS: INSULIN SLIDING SCALE (NOVOLOG) 1 VIAL SQ SCH ×4 (07:02→21:44)
[2021-12-17] MEDS: TOPIRAMATE 25 MG TABLET PO SCH (09:46)
[2021-12-17] MEDS: BUDESONIDE/FORMETEROL FUMARATE 160/4.5 mcg INHALER IH SCH ×2 (09:46→21:52)
[2021-12-17] MEDS: amLODIPine BESYLATE 10 MG TABLET (FP) PO SCH (09:47)
[2021-12-17] MEDS: busPIRone HCL 10 MG TABLET (FP) PO SCH ×2 (09:48→21:45)
[2021-12-17] MEDS: NICOTINE 10 MG CARTRIDGE (INHALER) IH PRN ×2 (09:48→21:49)
[2021-12-17] MEDS: ALBUTEROL SO4 HFA INHALER IH PRN (09:48)
[2021-12-17] MEDS: ASPIRIN 81 MG CHEWABLE TABLETS PO SCH (09:48)
[2021-12-17] MEDS: PRENATAL VITAMINS W/ FOLIC ACID TABLET (FP) PO SCH (09:48)
[2021-12-17] MEDS: FAMOTIDINE 20 MG TABLET PO SCH ×2 (09:48→21:46)
[2021-12-17] MEDS: SERTRALINE HCL 50 MG TABLET (FP) PO SCH (09:48)
[2021-12-17] MEDS: MONTELUKAST NA 10 MG TABLET PO SCH (21:45)
[2021-12-17] MEDS: DOCUSATE SODIUM 100 MG CAPSULE (FP) PO SCH (21:45)
[2021-12-17] MEDS: THIAMINE HCL 100 MG TABLET (FP) PO SCH (21:45)
[2021-12-17] MEDS: MELATONIN 5 MG TABLETS PO SCH (21:49)
[2021-12-17] MEDS: AMITRIPTYLINE HCL 25 MG TABLET PO SCH (23:18)
[2021-12-18] MEDS: methaDONE HCL 10 MG TABLET PO SCH (06:11)
[2021-12-18] MEDS: GABAPENTIN 100 MG CAPSULE PO SCH ×3 (06:11→21:24)
[2021-12-18] MEDS: INSULIN SLIDING SCALE (NOVOLOG) 1 VIAL SQ SCH ×4 (06:12→21:26)
[2021-12-18] MEDS: NICOTINE 10 MG CARTRIDGE (INHALER) IH PRN ×2 (08:42→21:27)
[2021-12-18] MEDS: BUDESONIDE/FORMETEROL FUMARATE 160/4.5 mcg INHALER IH SCH ×2 (09:51→21:26)
[2021-12-18] MEDS: ALBUTEROL SO4 HFA INHALER IH PRN (09:51)
[2021-12-18] MEDS: busPIRone HCL 10 MG TABLET (FP) PO SCH ×2 (09:52→21:24)
[2021-12-18] MEDS: TOPIRAMATE 25 MG TABLET PO SCH (09:52)
[2021-12-18] MEDS: amLODIPine BESYLATE 10 MG TABLET (FP) PO SCH (09:53)
[2021-12-18] MEDS: SERTRALINE HCL 50 MG TABLET (FP) PO SCH (09:53)
[2021-12-18] MEDS: FAMOTIDINE 20 MG TABLET PO SCH ×2 (09:53→21:24)
[2021-12-18] MEDS: ASPIRIN 81 MG CHEWABLE TABLETS PO SCH (09:53)
[2021-12-18] MEDS: PRENATAL VITAMINS W/ FOLIC ACID TABLET (FP) PO SCH (09:54)
[2021-12-18] MEDS ORDERED: INSULIN (NOVOLOG) ASPART 100 UNITS/ML 10ML VIAL ONE ×3 (11:54→21:47)
[2021-12-18] MEDS: THIAMINE HCL 100 MG TABLET (FP) PO SCH (21:24)
[2021-12-18] MEDS: DOCUSATE SODIUM 100 MG CAPSULE (FP) PO SCH (21:24)
[2021-12-18] MEDS: MELATONIN 5 MG TABLETS PO SCH (21:24)
[2021-12-18] MEDS: AMITRIPTYLINE HCL 25 MG TABLET PO SCH (21:25)
[2021-12-18] MEDS: MONTELUKAST NA 10 MG TABLET PO SCH (21:25)
[2021-12-19] MEDS: GABAPENTIN 100 MG CAPSULE PO SCH ×3 (06:09→21:19)
[2021-12-19] MEDS: methaDONE HCL 10 MG TABLET PO SCH (06:09)
[2021-12-19] MEDS ORDERED: INSULIN (NOVOLOG) ASPART 100 UNITS/ML 10ML VIAL ONE ×2 (06:10→10:46)
[2021-12-19] MEDS: INSULIN SLIDING SCALE (NOVOLOG) 1 VIAL SQ SCH ×4 (06:11→21:18)
[2021-12-19] MEDS: NICOTINE 10 MG CARTRIDGE (INHALER) IH PRN (08:25)
[2021-12-19] MEDS: PRENATAL VITAMINS W/ FOLIC ACID TABLET (FP) PO SCH (09:22)
[2021-12-19] MEDS: BUDESONIDE/FORMETEROL FUMARATE 160/4.5 mcg INHALER IH SCH ×2 (09:23→21:21)
[2021-12-19] MEDS: ALBUTEROL SO4 HFA INHALER IH PRN (09:23)
[2021-12-19] MEDS: SERTRALINE HCL 50 MG TABLET (FP) PO SCH (09:24)
[2021-12-19] MEDS: amLODIPine BESYLATE 10 MG TABLET (FP) PO SCH (09:24)
[2021-12-19] MEDS: ASPIRIN 81 MG CHEWABLE TABLETS PO SCH (09:24)
[2021-12-19] MEDS: TOPIRAMATE 25 MG TABLET PO SCH (09:24)
[2021-12-19] MEDS: busPIRone HCL 10 MG TABLET (FP) PO SCH ×2 (09:24→21:19)
[2021-12-19] MEDS: FAMOTIDINE 20 MG TABLET PO SCH ×2 (09:24→21:19)
[2021-12-19] MEDS: MONTELUKAST NA 10 MG TABLET PO SCH (21:19)
[2021-12-19] MEDS: DOCUSATE SODIUM 100 MG CAPSULE (FP) PO SCH (21:19)
[2021-12-19] MEDS: AMITRIPTYLINE HCL 25 MG TABLET PO SCH (21:19)
[2021-12-19] MEDS: MELATONIN 5 MG TABLETS PO SCH (21:21)
[2021-12-19] MEDS: THIAMINE HCL 100 MG TABLET (FP) PO SCH (21:21)
[2021-12-20] MEDS: INSULIN SLIDING SCALE (NOVOLOG) 1 VIAL SQ SCH ×4 (06:10→21:07)
[2021-12-20] MEDS ORDERED: INSULIN (NOVOLOG) ASPART 100 UNITS/ML 10ML VIAL ONE ×3 (06:10→16:10)
[2021-12-20] MEDS: GABAPENTIN 100 MG CAPSULE PO SCH ×3 (06:11→21:06)
[2021-12-20] MEDS: methaDONE HCL 10 MG TABLET PO SCH (06:11)
[2021-12-20] MEDS: NICOTINE 10 MG CARTRIDGE (INHALER) IH PRN (09:59)
[2021-12-20] MEDS: PRENATAL VITAMINS W/ FOLIC ACID TABLET (FP) PO SCH (09:59)
[2021-12-20] MEDS: BUDESONIDE/FORMETEROL FUMARATE 160/4.5 mcg INHALER IH SCH ×2 (10:00→21:08)
[2021-12-20] MEDS: ASPIRIN 81 MG CHEWABLE TABLETS PO SCH (10:01)
[2021-12-20] MEDS: TOPIRAMATE 25 MG TABLET PO SCH (10:01)
[2021-12-20] MEDS: amLODIPine BESYLATE 10 MG TABLET (FP) PO SCH (10:01)
[2021-12-20] MEDS: SERTRALINE HCL 50 MG TABLET (FP) PO SCH (10:01)
[2021-12-20] MEDS: FAMOTIDINE 20 MG TABLET PO SCH ×2 (10:01→21:06)
[2021-12-20] MEDS: busPIRone HCL 10 MG TABLET (FP) PO SCH ×2 (10:01→21:06)
[2021-12-20] MEDS: ALBUTEROL SO4 HFA INHALER IH PRN (13:52)
[2021-12-20] MEDS: MELATONIN 5 MG TABLETS PO SCH (21:05)
[2021-12-20] MEDS: THIAMINE HCL 100 MG TABLET (FP) PO SCH (21:05)
[2021-12-20] MEDS: DOCUSATE SODIUM 100 MG CAPSULE (FP) PO SCH (21:05)
[2021-12-20] MEDS: AMITRIPTYLINE HCL 25 MG TABLET PO SCH (21:06)
[2021-12-20] MEDS: MONTELUKAST NA 10 MG TABLET PO SCH (21:06)
[2021-12-21] MEDS: methaDONE HCL 10 MG TABLET PO SCH (06:10)
[2021-12-21] MEDS: GABAPENTIN 100 MG CAPSULE PO SCH ×3 (06:10→21:12)
[2021-12-21] MEDS ORDERED: INSULIN (NOVOLOG) ASPART 100 UNITS/ML 10ML VIAL ONE ×2 (06:11→11:50)
[2021-12-21] MEDS: INSULIN SLIDING SCALE (NOVOLOG) 1 VIAL SQ SCH ×4 (06:12→21:14)
[2021-12-21] MEDS: TOPIRAMATE 25 MG TABLET PO SCH (10:12)
[2021-12-21] MEDS: busPIRone HCL 10 MG TABLET (FP) PO SCH ×2 (10:12→21:12)
[2021-12-21] MEDS: BUDESONIDE/FORMETEROL FUMARATE 160/4.5 mcg INHALER IH SCH ×2 (10:12→21:13)
[2021-12-21] MEDS: amLODIPine BESYLATE 10 MG TABLET (FP) PO SCH (10:12)
[2021-12-21] MEDS: PRENATAL VITAMINS W/ FOLIC ACID TABLET (FP) PO SCH (10:12)
[2021-12-21] MEDS: SERTRALINE HCL 50 MG TABLET (FP) PO SCH (10:12)
[2021-12-21] MEDS: FAMOTIDINE 20 MG TABLET PO SCH ×2 (10:12→21:12)
[2021-12-21] MEDS: ASPIRIN 81 MG CHEWABLE TABLETS PO SCH (10:12)
[2021-12-21] MEDS: ALBUTEROL SO4 HFA INHALER IH PRN (10:13)
[2021-12-21] MEDS: MONTELUKAST NA 10 MG TABLET PO SCH (21:12)
[2021-12-21] MEDS: DOCUSATE SODIUM 100 MG CAPSULE (FP) PO SCH (21:12)
[2021-12-21] MEDS: MELATONIN 5 MG TABLETS PO SCH (21:12)
[2021-12-21] MEDS: THIAMINE HCL 100 MG TABLET (FP) PO SCH (21:12)
[2021-12-21] MEDS: AMITRIPTYLINE HCL 25 MG TABLET PO SCH (21:16)
[2021-12-22] MEDS: methaDONE HCL 10 MG TABLET PO SCH (05:58)
[2021-12-22] MEDS: GABAPENTIN 100 MG CAPSULE PO SCH ×3 (05:58→21:29)
[2021-12-22] MEDS: INSULIN SLIDING SCALE (NOVOLOG) 1 VIAL SQ SCH ×4 (05:59→21:32)
[2021-12-22] MEDS: NICOTINE 10 MG CARTRIDGE (INHALER) IH PRN ×2 (09:52→21:33)
[2021-12-22] MEDS: ALBUTEROL SO4 HFA INHALER IH PRN (09:52)
[2021-12-22] MEDS: SERTRALINE HCL 50 MG TABLET (FP) PO SCH (09:52)
[2021-12-22] MEDS: ASPIRIN 81 MG CHEWABLE TABLETS PO SCH (09:53)
[2021-12-22] MEDS: FAMOTIDINE 20 MG TABLET PO SCH ×2 (09:53→21:28)
[2021-12-22] MEDS: amLODIPine BESYLATE 10 MG TABLET (FP) PO SCH (09:53)
[2021-12-22] MEDS: busPIRone HCL 10 MG TABLET (FP) PO SCH ×2 (09:53→21:29)
[2021-12-22] MEDS: TOPIRAMATE 25 MG TABLET PO SCH (09:54)
[2021-12-22] MEDS: PRENATAL VITAMINS W/ FOLIC ACID TABLET (FP) PO SCH (09:54)
[2021-12-22] MEDS: BUDESONIDE/FORMETEROL FUMARATE 160/4.5 mcg INHALER IH SCH ×2 (09:55→21:27)
[2021-12-22 11:00] LABS: CALCIUM 8.6 mg/dL (8.5-10.1)
[2021-12-22 11:02] LABS: ALBUMIN 3.3 g/dl (3.4-5.0); BLOOD UREA NITROGEN 34.8 mg/dL (7-18)
[2021-12-22 11:05] LABS: CREATININE 1.3 mg/dL (0.55-1.3)
[2021-12-22 11:06] LABS: TOT PROT 6.3 g/dl (6.4-8.2)
[2021-12-22 11:07] LABS: BILIRUBIN,TOTAL 0.4 mg/dL (0.2-1)
[2021-12-22] MEDS ORDERED: INSULIN (NOVOLOG) ASPART 100 UNITS/ML 10ML VIAL ONE (11:52)
[2021-12-22] MEDS: AMITRIPTYLINE HCL 25 MG TABLET PO SCH (21:28)
[2021-12-22] MEDS: THIAMINE HCL 100 MG TABLET (FP) PO SCH (21:28)
[2021-12-22] MEDS: DOCUSATE SODIUM 100 MG CAPSULE (FP) PO SCH (21:28)
[2021-12-22] MEDS: MONTELUKAST NA 10 MG TABLET PO SCH (21:28)
[2021-12-22] MEDS: MELATONIN 5 MG TABLETS PO SCH (21:29)
[2021-12-23] MEDS: GABAPENTIN 100 MG CAPSULE PO SCH ×3 (06:07→21:32)
[2021-12-23] MEDS: methaDONE HCL 10 MG TABLET PO SCH (06:08)
[2021-12-23] MEDS ORDERED: INSULIN (NOVOLOG) ASPART 100 UNITS/ML 10ML VIAL ONE (06:10)
[2021-12-23] MEDS: INSULIN SLIDING SCALE (NOVOLOG) 1 VIAL SQ SCH ×4 (06:11→21:34)
[2021-12-23] MEDS: BUDESONIDE/FORMETEROL FUMARATE 160/4.5 mcg INHALER IH SCH ×2 (10:14→21:36)
[2021-12-23] MEDS: ALBUTEROL SO4 HFA INHALER IH PRN (10:14)
[2021-12-23] MEDS: amLODIPine BESYLATE 10 MG TABLET (FP) PO SCH (10:15)
[2021-12-23] MEDS: SERTRALINE HCL 50 MG TABLET (FP) PO SCH (10:15)
[2021-12-23] MEDS: TOPIRAMATE 25 MG TABLET PO SCH (10:15)
[2021-12-23] MEDS: ASPIRIN 81 MG CHEWABLE TABLETS PO SCH (10:15)
[2021-12-23] MEDS: PRENATAL VITAMINS W/ FOLIC ACID TABLET (FP) PO SCH (10:15)
[2021-12-23] MEDS: busPIRone HCL 10 MG TABLET (FP) PO SCH ×2 (10:15→21:32)
[2021-12-23] MEDS: FAMOTIDINE 20 MG TABLET PO SCH ×2 (10:15→21:32)
[2021-12-23] MEDS: NICOTINE 10 MG CARTRIDGE (INHALER) IH PRN (10:16)
[2021-12-23] MEDS: THIAMINE HCL 100 MG TABLET (FP) PO SCH (21:31)
[2021-12-23] MEDS: MELATONIN 5 MG TABLETS PO SCH (21:31)
[2021-12-23] MEDS: DOCUSATE SODIUM 100 MG CAPSULE (FP) PO SCH (21:32)
[2021-12-23] MEDS: AMITRIPTYLINE HCL 25 MG TABLET PO SCH (21:32)
[2021-12-23] MEDS: MONTELUKAST NA 10 MG TABLET PO SCH (21:32)
[2021-12-24] MEDS ORDERED: INSULIN (NOVOLOG) ASPART 100 UNITS/ML 10ML VIAL ONE (06:19)
[2021-12-24] MEDS: GABAPENTIN 100 MG CAPSULE PO SCH (06:20)
[2021-12-24] MEDS: methaDONE HCL 10 MG TABLET PO SCH (06:21)
[2021-12-24 06:41] VITALS: TEMP 98.6
[2021-12-24] MEDS: INSULIN SLIDING SCALE (NOVOLOG) 1 VIAL SQ SCH (07:07)
[2021-12-24 09:20] VITALS: BP 119/75; PULSE 83
[2021-12-24] MEDS: ASPIRIN 81 MG CHEWABLE TABLETS PO SCH (09:38)
[2021-12-24] MEDS: BUDESONIDE/FORMETEROL FUMARATE 160/4.5 mcg INHALER IH SCH (09:39)
[2021-12-24] MEDS: ALBUTEROL SO4 HFA INHALER IH PRN (09:39)
[2021-12-24] MEDS: busPIRone HCL 10 MG TABLET (FP) PO SCH (09:39)
[2021-12-24] MEDS: amLODIPine BESYLATE 10 MG TABLET (FP) PO SCH (09:39)
[2021-12-24] MEDS: FAMOTIDINE 20 MG TABLET PO SCH (09:40)
[2021-12-24] MEDS: TOPIRAMATE 25 MG TABLET PO SCH (09:40)
[2021-12-24] MEDS: PRENATAL VITAMINS W/ FOLIC ACID TABLET (FP) PO SCH (09:40)
[2021-12-24] MEDS: SERTRALINE HCL 50 MG TABLET (FP) PO SCH (09:41)
== END 2021-12-24 10:15 | disposition home or self-care (01) | DRG 772 ==
LOC: YASAS 14:24 → Y3E 17:52
PROVIDERS: ADMIT Allergy & Immunology; ATTEND Psychiatry & Neurology Pain Medicine
PROC: HZ42ZZZ Group Counseling for Substance Abuse Treatment, Cognitive-Behavioral (ICD-10-PCS; principal; 2021-12-10)
DX: F11.20 Opioid dependence, uncomplicated (principal); F10.20 Alcohol dependence, uncomplicated; F14.20 Cocaine dependence, uncomplicated; F13.20 Sedative, hypnotic or anxiolytic dependence, uncomplicated; F17.210 Nicotine dependence, cigarettes, uncomplicated; F19.282 Other psychoactive substance dependence with psychoactive substance-induced sleep disorder; E08.22 Diabetes mellitus due to underlying condition with diabetic chronic kidney disease; N18.30 Chronic kidney disease, stage 3 unspecified; Z79.52 Long term (current) use of systemic steroids; I10 Essential (primary) hypertension; Z79.4 Long term (current) use of insulin; J10.1 Influenza due to other identified influenza virus with other respiratory manifestations; J44.9 Chronic obstructive pulmonary disease, unspecified; J45.40 Moderate persistent asthma, uncomplicated; Z88.8 Allergy status to other drugs, medicaments and biological substances; Z91.013 Allergy to seafood
CPT/HCPCS: 36415; 80053; 82962; 85027; C9803-CS; U0003; U0005

== ENCOUNTER 2022-10-23 17:16 | Inpatient (IN) | payer OTHER ==
[2022-10-23 17:58] VITALS: BMI 33.6
[2022-10-23] MEDS ORDERED: NICOTINE POLACRILEX 2 MG GUM BUC PRN (18:28)
[2022-10-23] MEDS ORDERED: NALOXONE HCL 0.4 MG/ML VIAL IM PRN (18:28)
[2022-10-23] MEDS ORDERED: MAG HYDROX/AL HYDROX/SIMETH 30 ML UNIT-DOSE CUP PO PRN (18:28)
[2022-10-23] MEDS ORDERED: IBUPROFEN 600 MG TABLET (FP) PO PRN (18:28)
[2022-10-23] MEDS ORDERED: BISMUTH SUBSALICYLATE 524 MG/30 ML PO PRN (18:28)
[2022-10-23] MEDS ORDERED: NALOXONE HCL (KLOXXADO) 8 MG SPRAY NS PRN (18:28)
[2022-10-23] MEDS ORDERED: NICOTINE 10 MG CARTRIDGE (INHALER) IH PRN (18:28)
[2022-10-23] MEDS ORDERED: guaiFENesin 600 MG TABLET.ER (FP) PO PRN (18:28)
[2022-10-23] MEDS ORDERED: POLYETHYLENE GLYCOL (HEALTHYLAX) 3350 17 GM PACKET PO PRN (18:28)
[2022-10-23] MEDS ORDERED: BENZOCAINE/MENTHOL (CHLORASEPTIC ) LOZENGE MM PRN (18:28)
[2022-10-23] MEDS ORDERED: DICYCLOMINE HCL 10 MG CAPSULE PO PRN (18:28)
[2022-10-23] MEDS ORDERED: MAGNESIUM HYDROX 2400MG/30ML ORAL SUSPENSION 30 ML CUP PO PRN (18:28)
[2022-10-23] MEDS ORDERED: IBUPROFEN 400 MG TABLET (FP) PO PRN (18:28)
[2022-10-23] MEDS ORDERED: BENZONATATE 200 MG CAPSULE PO PRN (18:28)
[2022-10-23] MEDS ORDERED: ACETAMINOPHEN 325 MG TABLET (FP) PO PRN (18:28)
[2022-10-23] MEDS ORDERED: diazePAM 5 MG TABLET PO ONE (18:41)
[2022-10-23] MEDS ORDERED: diazePAM 5 MG TABLET ONE (19:43)
[2022-10-23] MEDS ORDERED: amLODIPine BESYLATE 5 MG TABLET (FP) ONE (19:43)
[2022-10-23] MEDS: amLODIPine BESYLATE 10 MG TABLET (FP) PO SCH (19:45)
[2022-10-23] MEDS: INSULIN SLIDING SCALE (NOVOLOG) 1 VIAL SQ SCH ×2 (20:07→22:37)
[2022-10-23] MEDS: MELATONIN 5 MG TABLETS PO PRN (22:39)
[2022-10-23] MEDS: THIAMINE HCL 100 MG TABLET (FP) PO SCH (22:40)
[2022-10-23] MEDS: MONTELUKAST NA 10 MG TABLET PO SCH (22:40)
[2022-10-23] MEDS: BUDESONIDE/FORMETEROL FUMARATE 160/4.5 mcg INHALER IH SCH (22:40)
[2022-10-23] MEDS: diazePAM 5 MG TABLET PO SCH (22:40)
[2022-10-24] MEDS: diazePAM 5 MG TABLET PO SCH ×4 (05:37→22:33)
[2022-10-24] MEDS: INSULIN SLIDING SCALE (NOVOLOG) 1 VIAL SQ SCH ×4 (06:45→22:32)
[2022-10-24] MEDS ORDERED: methaDONE HCL 10 MG TABLET PO SCH (09:15)
[2022-10-24] MEDS: BUDESONIDE/FORMETEROL FUMARATE 160/4.5 mcg INHALER IH SCH ×2 (09:20→22:33)
[2022-10-24] MEDS: methaDONE 40 MG, methaDONE 10 MG PO SCH (10:06)
[2022-10-24] MEDS: ASPIRIN 81 MG CHEWABLE TABLETS PO SCH (10:07)
[2022-10-24] MEDS: PRENATAL VITAMINS W/ FOLIC ACID TABLET (FP) PO SCH (10:08)
[2022-10-24] MEDS: amLODIPine BESYLATE 10 MG TABLET (FP) PO SCH (10:11)
[2022-10-24 10:27] LABS: HEMATOCRIT 35.4 % (35.4-49); HEMOGLOBIN 12.6 GM/dL (11.7-16.9); MCH 29.4 pg (25.7-33.7); MCHC 35.7 g/dl (32.0-35.9); MEAN CELL VOLUME 82.4 fl (80-96); MEAN PLT VOLUME 8.8 fl (7.5-11.1); PLATELET COUNT 173 10^3/uL (134-434); RBC 4.29 M/mm3 (4.00-5.60); RDW 14.5 % (11.9-15.9); WHITE BLOOD COUNT 4.9 K/mm3 (4.0-10.0)
[2022-10-24 10:51] LABS: ALBUMIN 3.4 g/dl (3.4-5.0); CALCIUM 8.6 mg/dL (8.5-10.1); CREATININE 1.6 mg/dL (0.55-1.3)
[2022-10-24 10:52] LABS: BLOOD UREA NITROGEN 28.4 mg/dL (7-18)
[2022-10-24 10:53] LABS: BILIRUBIN,TOTAL 0.4 mg/dL (0.2-1); TOT PROT 6.3 g/dl (6.4-8.2)
[2022-10-24] MEDS: busPIRone HCL 10 MG TABLET (FP) PO SCH ×2 (12:32→22:32)
[2022-10-24] MEDS ORDERED: INSULIN (NOVOLOG) ASPART 100 UNITS/ML 10ML VIAL ONE (16:37)
[2022-10-24] MEDS: ALBUTEROL SO4 HFA INHALER IH PRN (20:56)
[2022-10-24] MEDS: MELATONIN 5 MG TABLETS PO PRN (22:32)
[2022-10-24] MEDS: THIAMINE HCL 100 MG TABLET (FP) PO SCH (22:32)
[2022-10-24] MEDS: AMITRIPTYLINE HCL 25 MG TABLET PO SCH (22:32)
[2022-10-24] MEDS: MONTELUKAST NA 10 MG TABLET PO SCH (22:33)
[2022-10-25] MEDS: methaDONE 40 MG, methaDONE 10 MG PO SCH (05:35)
[2022-10-25] MEDS: diazePAM 5 MG TABLET PO SCH ×3 (05:35→22:14)
[2022-10-25] MEDS: INSULIN SLIDING SCALE (NOVOLOG) 1 VIAL SQ SCH ×4 (06:42→22:13)
[2022-10-25] MEDS: PRENATAL VITAMINS W/ FOLIC ACID TABLET (FP) PO SCH (09:44)
[2022-10-25] MEDS: ASPIRIN 81 MG CHEWABLE TABLETS PO SCH (09:44)
[2022-10-25] MEDS: BUDESONIDE/FORMETEROL FUMARATE 160/4.5 mcg INHALER IH SCH ×2 (09:44→22:15)
[2022-10-25] MEDS: busPIRone HCL 10 MG TABLET (FP) PO SCH ×2 (09:44→22:14)
[2022-10-25] MEDS: diazePAM 5 MG TABLET PO PRN (09:46)
[2022-10-25] MEDS: LOPERAMIDE HCL 2 MG CAPSULE PO PRN ×2 (09:48→17:28)
[2022-10-25] MEDS: amLODIPine BESYLATE 10 MG TABLET (FP) PO SCH (10:41)
[2022-10-25] MEDS: ALBUTEROL SO4 HFA INHALER IH PRN (17:26)
[2022-10-25] MEDS: THIAMINE HCL 100 MG TABLET (FP) PO SCH (22:13)
[2022-10-25] MEDS: AMITRIPTYLINE HCL 25 MG TABLET PO SCH (22:13)
[2022-10-25] MEDS: MONTELUKAST NA 10 MG TABLET PO SCH (22:14)
[2022-10-25] MEDS: MELATONIN 5 MG TABLETS PO PRN (22:15)
[2022-10-26] MEDS: diazePAM 5 MG TABLET PO SCH ×2 (05:45→17:39)
[2022-10-26] MEDS: methaDONE 40 MG, methaDONE 10 MG PO SCH (05:45)
[2022-10-26] MEDS: INSULIN SLIDING SCALE (NOVOLOG) 1 VIAL SQ SCH ×4 (06:03→22:15)
[2022-10-26] MEDS: BUDESONIDE/FORMETEROL FUMARATE 160/4.5 mcg INHALER IH SCH ×2 (10:10→22:11)
[2022-10-26] MEDS: ALBUTEROL SO4 HFA INHALER IH PRN ×2 (10:10→17:40)
[2022-10-26] MEDS: busPIRone HCL 10 MG TABLET (FP) PO SCH ×2 (10:10→22:10)
[2022-10-26] MEDS: PRENATAL VITAMINS W/ FOLIC ACID TABLET (FP) PO SCH (10:11)
[2022-10-26] MEDS: amLODIPine BESYLATE 10 MG TABLET (FP) PO SCH (10:11)
[2022-10-26] MEDS: ASPIRIN 81 MG CHEWABLE TABLETS PO SCH (10:11)
[2022-10-26] MEDS: diazePAM 5 MG TABLET PO PRN (10:12)
[2022-10-26 20:48] VITALS: RESP 18
[2022-10-26] MEDS: THIAMINE HCL 100 MG TABLET (FP) PO SCH (22:10)
[2022-10-26] MEDS: MELATONIN 5 MG TABLETS PO PRN (22:10)
[2022-10-26] MEDS: MONTELUKAST NA 10 MG TABLET PO SCH (22:10)
[2022-10-26] MEDS: AMITRIPTYLINE HCL 25 MG TABLET PO SCH (22:11)
[2022-10-27] MEDS: methaDONE 40 MG, methaDONE 10 MG PO SCH (05:35)
[2022-10-27 05:45] VITALS: TEMP 96.9
[2022-10-27] MEDS ORDERED: diazePAM 5 MG TABLET PO ONE (06:00)
[2022-10-27] MEDS: INSULIN SLIDING SCALE (NOVOLOG) 1 VIAL SQ SCH (06:28)
[2022-10-27 09:23] VITALS: BP 154/90; PULSE 81
[2022-10-27] MEDS: BUDESONIDE/FORMETEROL FUMARATE 160/4.5 mcg INHALER IH SCH (10:02)
[2022-10-27] MEDS: PRENATAL VITAMINS W/ FOLIC ACID TABLET (FP) PO SCH (10:03)
[2022-10-27] MEDS: ASPIRIN 81 MG CHEWABLE TABLETS PO SCH (10:03)
[2022-10-27] MEDS: busPIRone HCL 10 MG TABLET (FP) PO SCH (10:03)
[2022-10-27] MEDS: ALBUTEROL SO4 HFA INHALER IH PRN (10:03)
[2022-10-27] MEDS: amLODIPine BESYLATE 10 MG TABLET (FP) PO SCH (10:05)
== END 2022-10-27 10:57 | disposition home or self-care (01) | DRG 773 ==
LOC: YASAS 17:16 → Y6N 18:51
PROVIDERS: ADMIT Allergy & Immunology; ATTEND Surgery
PROC: HZ2ZZZZ Detoxification Services for Substance Abuse Treatment (ICD-10-PCS; principal; 2022-10-23)
DX: F10.230 Alcohol dependence with withdrawal, uncomplicated (principal); F11.20 Opioid dependence, uncomplicated; F13.20 Sedative, hypnotic or anxiolytic dependence, uncomplicated; F14.20 Cocaine dependence, uncomplicated; F17.210 Nicotine dependence, cigarettes, uncomplicated; F19.282 Other psychoactive substance dependence with psychoactive substance-induced sleep disorder; F19.24 Other psychoactive substance dependence with psychoactive substance-induced mood disorder; F33.2 Major depressive disorder, recurrent severe without psychotic features; F41.8 Other specified anxiety disorders; I10 Essential (primary) hypertension; J44.9 Chronic obstructive pulmonary disease, unspecified; J45.20 Mild intermittent asthma, uncomplicated; K21.9 Gastro-esophageal reflux disease without esophagitis; E11.9 Type 2 diabetes mellitus without complications; Z79.4 Long term (current) use of insulin; Z62.810 Personal history of physical and sexual abuse in childhood; Z88.8 Allergy status to other drugs, medicaments and biological substances
CPT/HCPCS: 36415; 80053; 82962; 85027; 86780; 87811; C9803-CS; U0003; U0005

== ENCOUNTER 2023-03-25 19:11 | Inpatient (IN) | payer OTHER ==
[2023-03-25 22:18] VITALS: BMI 27.6
[2023-03-25] MEDS ORDERED: chlordiazePOXIDE HCL 25 MG CAPSULE PO PRN (23:08)
[2023-03-25] MEDS ORDERED: ACETAMINOPHEN 325 MG TABLET (FP) PO PRN (23:19)
[2023-03-25] MEDS ORDERED: guaiFENesin 600 MG TABLET.ER (FP) PO PRN (23:19)
[2023-03-25] MEDS ORDERED: MAGNESIUM HYDROX 2400MG/30ML ORAL SUSPENSION 30 ML CUP PO PRN (23:19)
[2023-03-25] MEDS ORDERED: MAG HYDROX/AL HYDROX/SIMETH 30 ML UNIT-DOSE CUP PO PRN (23:19)
[2023-03-25] MEDS ORDERED: NALOXONE HCL 0.4 MG/ML VIAL IM PRN (23:19)
[2023-03-25] MEDS ORDERED: METHOCARBAMOL 500 MG TABLET PO PRN (23:19)
[2023-03-25] MEDS ORDERED: POLYETHYLENE GLYCOL (HEALTHYLAX) 3350 17 GM PACKET PO PRN (23:19)
[2023-03-25] MEDS ORDERED: BENZONATATE 200 MG CAPSULE PO PRN (23:19)
[2023-03-25] MEDS ORDERED: NALOXONE HCL (KLOXXADO) 8 MG SPRAY NS PRN (23:19)
[2023-03-25] MEDS ORDERED: DICYCLOMINE HCL 10 MG CAPSULE PO PRN (23:19)
[2023-03-25] MEDS ORDERED: IBUPROFEN 600 MG TABLET (FP) PO PRN (23:19)
[2023-03-25] MEDS ORDERED: NICOTINE POLACRILEX 2 MG GUM BUC PRN (23:19)
[2023-03-25] MEDS ORDERED: IBUPROFEN 400 MG TABLET (FP) PO PRN (23:19)
[2023-03-25] MEDS ORDERED: BENZOCAINE/MENTHOL (CHLORASEPTIC ) LOZENGE MM PRN (23:19)
[2023-03-25] MEDS ORDERED: LOPERAMIDE HCL 2 MG CAPSULE PO PRN (23:19)
[2023-03-25] MEDS: chlordiazePOXIDE HCL 25 MG CAPSULE PO SCH (23:50)
[2023-03-26] MEDS ORDERED: chlordiazePOXIDE HCL 25 MG CAPSULE ONE (01:06)
[2023-03-26] MEDS ORDERED: amLODIPine BESYLATE 5 MG TABLET (FP) ONE (01:06)
[2023-03-26] MEDS ORDERED: INSULIN (NOVOLOG) ASPART 100 UNITS/ML 10ML VIAL ONE (01:16)
[2023-03-26] MEDS: INSULIN SLIDING SCALE (NOVOLOG) 1 VIAL SQ SCH ×5 (01:18→22:06)
[2023-03-26] MEDS: amLODIPine BESYLATE 5 MG TABLET (FP) PO SCH ×2 (01:19→10:06)
[2023-03-26] MEDS: BUDESONIDE/FORMETEROL FUMARATE 160/4.5 mcg INHALER IH SCH ×3 (01:54→22:06)
[2023-03-26] MEDS: chlordiazePOXIDE HCL 25 MG CAPSULE PO SCH ×4 (05:17→22:08)
[2023-03-26] MEDS ORDERED: methaDONE HCL 10 MG TABLET PO ONE (07:48)
[2023-03-26] MEDS ORDERED: methaDONE 40 MG, methaDONE 30 MG PO ONE (08:15)
[2023-03-26] MEDS: ALBUTEROL SO4 HFA INHALER IH PRN ×2 (08:52→22:07)
[2023-03-26] MEDS: PRENATAL VITAMINS W/ FOLIC ACID TABLET (FP) PO SCH (10:06)
[2023-03-26] MEDS: ASPIRIN 81 MG CHEWABLE TABLETS PO SCH (10:06)
[2023-03-26] MEDS: BISMUTH SUBSALICYLATE 524 MG/30 ML PO PRN (10:10)
[2023-03-26] MEDS: MONTELUKAST NA 10 MG TABLET PO SCH (22:07)
[2023-03-26] MEDS: THIAMINE HCL 100 MG TABLET (FP) PO SCH (22:07)
[2023-03-26] MEDS: MELATONIN 5 MG TABLETS PO SCH (22:08)
[2023-03-27] MEDS ORDERED: chlordiazePOXIDE HCL 25 MG CAPSULE PO SCH (05:00)
[2023-03-27] MEDS: chlordiazePOXIDE HCL 10 MG CAPSULE PO SCH ×4 (05:29→22:14)
[2023-03-27] MEDS ORDERED: methaDONE HCL 40 MG DISPERSABLE TABLET PO ONE (06:00)
[2023-03-27] MEDS: INSULIN SLIDING SCALE (NOVOLOG) 1 VIAL SQ SCH ×4 (06:09→22:12)
[2023-03-27] MEDS: BUDESONIDE/FORMETEROL FUMARATE 160/4.5 mcg INHALER IH SCH ×2 (10:07→22:08)
[2023-03-27] MEDS: amLODIPine BESYLATE 5 MG TABLET (FP) PO SCH (10:07)
[2023-03-27] MEDS: ALBUTEROL SO4 HFA INHALER IH PRN ×2 (10:07→17:24)
[2023-03-27] MEDS: ASPIRIN 81 MG CHEWABLE TABLETS PO SCH (10:07)
[2023-03-27] MEDS: PRENATAL VITAMINS W/ FOLIC ACID TABLET (FP) PO SCH (10:07)
[2023-03-27] MEDS: BISMUTH SUBSALICYLATE 524 MG/30 ML PO PRN (10:08)
[2023-03-27 12:21] LABS: POTASSIUM 3.8 mmol/L (3.5-5.1)
[2023-03-27 12:26] LABS: ALBUMIN 2.9 g/dl (3.4-5.0); BLOOD UREA NITROGEN 27.4 mg/dL (7-18)
[2023-03-27 12:28] LABS: HEMATOCRIT 35.8 % (35.4-49); HEMOGLOBIN 12.1 GM/dL (11.7-16.9); MCH 29.3 pg (25.7-33.7); MCHC 33.7 g/dl (32.0-35.9); MEAN CELL VOLUME 86.8 fl (80-96); MEAN PLT VOLUME 8.9 fl (7.5-11.1); PLATELET COUNT 163 10^3/uL (134-434); RBC 4.13 M/mm3 (4.00-5.60); RDW 13.9 % (11.9-15.9); WHITE BLOOD COUNT 6.6 K/mm3 (4.0-10.0)
[2023-03-27 12:29] LABS: CREATININE 1.7 mg/dL (0.55-1.3)
[2023-03-27 12:31] LABS: BILIRUBIN,TOTAL 0.2 mg/dL (0.2-1); TOT PROT 5.3 g/dl (6.4-8.2)
[2023-03-27] MEDS: GABAPENTIN 100 MG CAPSULE PO SCH ×2 (14:50→22:11)
[2023-03-27] MEDS: traZODone HCL 50 MG TABLET (FP) PO SCH (22:11)
[2023-03-27] MEDS: MELATONIN 5 MG TABLETS PO SCH (22:11)
[2023-03-27] MEDS: THIAMINE HCL 100 MG TABLET (FP) PO SCH (22:11)
[2023-03-27] MEDS: MONTELUKAST NA 10 MG TABLET PO SCH (22:11)
[2023-03-28] MEDS ORDERED: chlordiazePOXIDE HCL 10 MG CAPSULE PO PRN
[2023-03-28] MEDS: methaDONE 80 MG, methaDONE 10 MG PO SCH (05:32)
[2023-03-28] MEDS: GABAPENTIN 100 MG CAPSULE PO SCH ×3 (05:33→22:05)
[2023-03-28] MEDS: chlordiazePOXIDE HCL 10 MG CAPSULE PO SCH ×2 (05:33→16:58)
[2023-03-28] MEDS ORDERED: methaDONE HCL 40 MG DISPERSABLE TABLET PO SCH (06:00)
[2023-03-28] MEDS: INSULIN SLIDING SCALE (NOVOLOG) 1 VIAL SQ SCH ×4 (07:19→21:56)
[2023-03-28] MEDS: BUDESONIDE/FORMETEROL FUMARATE 160/4.5 mcg INHALER IH SCH ×2 (10:04→22:04)
[2023-03-28] MEDS: SERTRALINE HCL 50 MG TABLET (FP) PO SCH (10:04)
[2023-03-28] MEDS: PRENATAL VITAMINS W/ FOLIC ACID TABLET (FP) PO SCH (10:04)
[2023-03-28] MEDS: amLODIPine BESYLATE 5 MG TABLET (FP) PO SCH (10:04)
[2023-03-28] MEDS: ASPIRIN 81 MG CHEWABLE TABLETS PO SCH (10:04)
[2023-03-28] MEDS: ALBUTEROL SO4 HFA INHALER IH PRN ×3 (10:05→21:22)
[2023-03-28] MEDS: MELATONIN 5 MG TABLETS PO SCH (22:04)
[2023-03-28] MEDS: traZODone HCL 50 MG TABLET (FP) PO SCH (22:05)
[2023-03-28] MEDS: MONTELUKAST NA 10 MG TABLET PO SCH (22:05)
[2023-03-28] MEDS: THIAMINE HCL 100 MG TABLET (FP) PO SCH (22:05)
[2023-03-29] MEDS ORDERED: chlordiazePOXIDE HCL 10 MG CAPSULE PO ONE (05:00)
[2023-03-29] MEDS: GABAPENTIN 100 MG CAPSULE PO SCH (05:26)
[2023-03-29] MEDS: methaDONE 80 MG, methaDONE 10 MG PO SCH (05:26)
[2023-03-29] MEDS: ALBUTEROL SO4 HFA INHALER IH PRN ×2 (05:42→10:09)
[2023-03-29] MEDS: INSULIN SLIDING SCALE (NOVOLOG) 1 VIAL SQ SCH (06:46)
[2023-03-29] MEDS: SERTRALINE HCL 50 MG TABLET (FP) PO SCH (10:09)
[2023-03-29] MEDS: BUDESONIDE/FORMETEROL FUMARATE 160/4.5 mcg INHALER IH SCH (10:09)
[2023-03-29] MEDS: ASPIRIN 81 MG CHEWABLE TABLETS PO SCH (10:10)
[2023-03-29] MEDS: amLODIPine BESYLATE 5 MG TABLET (FP) PO SCH (10:10)
[2023-03-29] MEDS: PRENATAL VITAMINS W/ FOLIC ACID TABLET (FP) PO SCH (10:10)
[2023-03-29 10:12] VITALS: BP 140/75; PULSE 71; RESP 16; TEMP 97.8
== END 2023-03-29 10:37 | disposition home or self-care (01) | DRG 773 ==
LOC: YASAS 19:11 → Y3N 03-26 01:17
PROVIDERS: ADMIT Allergy & Immunology; ATTEND Surgery
PROC: HZ2ZZZZ Detoxification Services for Substance Abuse Treatment (ICD-10-PCS; principal; 2023-03-26)
DX: F10.230 Alcohol dependence with withdrawal, uncomplicated (principal); F13.20 Sedative, hypnotic or anxiolytic dependence, uncomplicated; F11.20 Opioid dependence, uncomplicated; F14.20 Cocaine dependence, uncomplicated; F17.210 Nicotine dependence, cigarettes, uncomplicated; F41.9 Anxiety disorder, unspecified; F32.9 Major depressive disorder, single episode, unspecified; J44.9 Chronic obstructive pulmonary disease, unspecified; G47.00 Insomnia, unspecified; E11.9 Type 2 diabetes mellitus without complications; Z86.74 Personal history of sudden cardiac arrest; K21.9 Gastro-esophageal reflux disease without esophagitis
CPT/HCPCS: 36415; 80053; 82962; 85027; 86780; 87635; 87811